=== PATIENT | male | born 1970 | race Caucasian/White ===

== ENCOUNTER 2017-02-02 16:40 | Inpatient (IN) ==
[2017-02-02] MEDS ORDERED: ZOFRAN IV PRN (18:50)
[2017-02-02] MEDS ORDERED: DILAUDID IV PRN (18:56)
[2017-02-02] MEDS: LR 1,000 ML IV SCH ×2 (19:13→20:14)
[2017-02-02 19:20] LABS: BASO% 0.2 % (0.0-0.8); EOS# 0.02 X1000 (0.0-0.7); EOS% 0.1 % (0.0-10.0); HEMATOCRIT 44.3 % (42.0-52.0); HEMOGLOBIN 15.9 g/dL (14.0-18.0); IMM GRAN# 0.12 X1000 (0.0-0.04); IMM GRAN% 0.6 % (0.0-0.5); LYMPH# 2.22 X1000 (1.2-3.4); LYMPH% 10.3 % (20.5-51.1); MANUAL DIFF NEEDED? NO; MCH 31.9 PG (27-31); MCHC 35.9 g/dL (33-37); MONO# 3.57 X1000 (0.11-0.59); MONO% 16.5 % (1.7-9.3); MPV 9.1 FL (7.4-10.4); NEUT% 72.3 % (42.2-75.2); PLT 377 X1000 (130-400); RBC 4.98 XMIL (4.7-6.1)
--- NOTE | 2017-02-02 19:24 | Diag Imaging Result Doc PS360 ---
EXAM: KUB ABDOMEN HISTORY: abdominal pain TECHNIQUE: One view COMMENT: There is a large amount of stool in ascending colon and gas throughout the transverse colon and to a lesser extent in the descending and sigmoid colon. There is at least one loop of gas-distended small bowel in the left midabdomen. There is an apparent stent, apparently between the stomach and a pseudocyst is seen on the CT of 06/16 2016. There are no previous studies available for comparison. IMPRESSION: Constipation. Possible ileus. Electronically signed by Angel Louis 02/02/2017 7:22 PM
[2017-02-02 19:26] LABS: INR 1.1; PROTIME 11.6 Seconds (9.2-11.7)
[2017-02-02 19:41] LABS: AGAP 17; ALBUMIN 3.8 g/dL (3.5-5.0); ALKALINE PHOSPHATASE 167 U/L (32-122); BUN 3 mg/dL (8-22); CHLORIDE 92 mmol/L (98-107); COSMO 265; GOT 10 U/L (10-34); GPT 9 U/L (10-44); POTASSIUM 3.1 mmol/L (3.5-5.1); SODIUM 133 mmol/L (136-145); TCO2 24 mmol/L (25-35); TOTAL PROTEIN 7.5 g/dL (6.3-8.3)
--- NOTE | 2017-02-02 20:07 | HISTORY AND PHYSICAL ---
PRIMARY CARE DOCTOR: None. REAL ESTATE INVESTOR: Shamar East MD PRESENTING COMPLAINT: Abdominal pain. HISTORY OF PRESENTING COMPLAINT: Mr. Thomson is a transfer from [facility]. Patient was admitted over there yesterday, apparently because of worsening abdominal pain for the past 3 days. According to Mr. Thomson, the pain has been getting progressively worse to the extent that he has been so severely hurting and that he cannot stay still in 1 single position. The pain is about 10/10 and has no relieving factor, movement or any food. Eating well even make it worse. Patient refers that he has not had any food for some time. Of note, Mr. Thomson has previous pancreatitis before apparently due to alcohol and stones, has had stents in the CBD before this was cleansed 07/23/[address] East. Apparently Mr. Thomson was in [facility], a CT scan of the abdomen and pelvic was done which shows a 5.7 septated complex cystic mass in the pancreatic head consistent with inflammatory pseudocyst and because there is no director market intelligence in that facility, the patient was transferred over here for medical care. PAST MEDICAL HISTORY: 1. Chronic pancreatitis. 2. Pseudocyst. 3. Diabetes mellitus. 4. Previous alcohol abuse. PAST SURGICAL HISTORY: 1. Multiple stents in the CBD. 2. Partial finger amputation on the right. ALLERGIES: None. SOCIAL HISTORY: The patient used to drink extensively for a very long time. According to him, he stopped drinking that heavily since last year after he was found to have a bout of pancreatitis; however, he still says he drinks about 3-4 beers every now and then. His last drink was some about 2 weeks ago and subsequently 2 days later he started having this abdominal pain which has been going on for the past 9 days. The patient also smokes about 2-1/2 packs daily and has been going on for the past 20 years. Lives alone. Not . No kids. Patient is on disability. Patient does have a remote history of street drug abuse. According to him, he has not used any recently. OBJECTIVE: Vital signs: Blood pressure is 132/77, pulse of 108, respirations 24, temperature 98.4 degrees. General: Mr. Thomson is a 46-year-old male. He is in bed in some painful distress. HEENT: Mucosa is slightly dry. Anicteric and acyanotic. Neck supple. Head is normocephalic and atraumatic. The patient has very poor dentition. Chest: Good air entry bilaterally. No crepitations. No rhonchi. Cardiovascular: Regular rate and rhythm. There are no murmurs no rubs, no gallops. Abdomen: Distended. It is tender all over, but there is not any rebound or apparent peritoneal irritation. GRID CASTER: Patient is alert, awake, oriented x4. There is no focal neurological deficit. Motor is 5/5. There is not any sensory deficit. Cranial nerves 2 through 12 have been grossly examined and are unremarkable. LABORATORY DATA: WBC is 21.6, hemoglobin is 15.9, platelet count of 377,000. Chemistry is still pending. IMAGING: A KUB that we just did shows a large amount of stool in ascending colon and gas throughout the transverse colon and to a lesser extent in the descending colon. There is at least 1 loop of gas-distended small bowel. There is apparent stent between the stomach and the pseudocyst. ASSESSMENT: 1. Acute on chronic recurrent pancreatitis. 2. Inflammatory pancreatic pseudocyst. 3. Severe constipation with ileus. 4. Alcohol abuse. 5. History of previous drug abuse. PLAN: 1. In general, I did call Dr. East and discussed the case with him. He is going to come and see the patient tomorrow. For now, he recommended to keep the patient nothing per oral, continue with adequate hydration and pain control. He recommended also to put the patient on antibiotics and get the pancreas under control and he will see him tomorrow and make a decision if he needs to revisit the stent. 2. We will start the patient on lactated Ringer's at 125 mL/hour. We will still be pending the chemistry to see if we need to make any changes. 3. Start the patient on Protonix. 4. We will start him on meropenem. 5. Give further recommendations as more results become available. I think some of his pain is actually related with the severe constipation as well, so we will be extremely cautious with the use of narcotics and give him some bowel prep to help with the constipation. cc: MD NUBIA Reich
[2017-02-02] MEDS: PROTONIX IV SCH (20:14)
[2017-02-02] MEDS: MERREM 500 MG in NS 50 ML IV SCH (20:14)
[2017-02-02] MEDS ORDERED: MAGNESIUM SULFATE 2 GM/S.W.I. 2 GM/50 ML IVPB IV ONE (20:28)
[2017-02-02] MEDS: DILAUDID IV PRN (22:29)
[2017-02-02] MEDS: BENTYL IM SCH (23:02)
[2017-02-02] MEDS: POTASSIUM CHLORIDE 20 MEQ/SWI 20 MEQ/100 ML IVPB IV SCH (23:56)
[2017-02-03] MEDS: POTASSIUM CHLORIDE 20 MEQ/SWI 20 MEQ/100 ML IVPB IV SCH (01:53)
[2017-02-03] MEDS: DILAUDID IV PRN ×4 (04:23→22:53)
[2017-02-03] MEDS: MERREM 500 MG in NS 50 ML IV SCH ×3 (05:37→21:35)
[2017-02-03] MEDS: BENTYL IM SCH (05:37)
[2017-02-03] MEDS: LR 1,000 ML IV SCH ×2 (05:39→14:07)
[2017-02-03 05:48] LABS: BASO% 0.2 % (0.0-0.8); HEMATOCRIT 42.2 % (42.0-52.0); HEMOGLOBIN 15.1 g/dL (14.0-18.0); IMM GRAN# 0.12 X1000 (0.0-0.04); IMM GRAN% 0.6 % (0.0-0.5); LYMPH# 1.76 X1000 (1.2-3.4); LYMPH% 8.1 % (20.5-51.1); MANUAL DIFF NEEDED? YES; MCH 32.1 PG (27-31); MCHC 35.8 g/dL (33-37); MCV 89.8 FL (81-99); MONO# 3.66 X1000 (0.11-0.59); MONO% 16.8 % (1.7-9.3); MPV 9.7 FL (7.4-10.4); NEUT% 74.3 % (42.2-75.2); PLT 315 X1000 (130-400)
[2017-02-03 06:05] LABS: BANDS 18 % (0-1); LYMPHS 12 % (21-51); MONO 10 % (1-9)
[2017-02-03 06:13] LABS: AGAP 22; ALBUMIN 3.3 g/dL (3.5-5.0); ALKALINE PHOSPHATASE 157 U/L (32-122); BUN 2 mg/dL (8-22); CALCIUM 8.5 mg/dL (8.8-10.2); CHLORIDE 92 mmol/L (98-107); COSMO 270; GOT 10 U/L (10-34); GPT 7 U/L (10-44); MAGNESIUM 2.1 mg/dL (1.5-2.7); POTASSIUM 3.7 mmol/L (3.5-5.1); SODIUM 133 mmol/L (136-145); TCO2 19 mmol/L (25-35); TOTAL BILIRUBIN 0.34 mg/dL (0.20-1.00); TOTAL PROTEIN 6.5 g/dL (6.3-8.3)
[2017-02-03] MEDS: NICODERM PATCH TD SCH (10:43)
--- NOTE | 2017-02-03 11:45 | Diag Imaging Result Doc PS360 ---
EXAM: KUB ABDOMEN HISTORY: evaluate for constipation or obstruction TECHNIQUE: Two views COMMENT: There is solid stool present in the right transverse colon. Some stool is also present distally in the sigmoid. No small bowel or gastric distention is present. IMPRESSION: Constipation. Electronically signed by Angel Louis 02/03/2017 11:42 AM
[2017-02-03] MEDS: HUMULIN R SUBQ SCH ×2 (11:57→17:50)
--- NOTE | 2017-02-03 13:52 | CONSULTATION ---
DATE OF CONSULTATION: 02/03/2017 REASONS FOR CONSULTATION: Abdominal pain, constipation, pancreatic pseudocyst. HISTORY OF PRESENT ILLNESS: Mr. Thomson is a 46-year-old male who has a known history of chronic pancreatitis, complicated with pancreatic pseudocyst, status post stenting and drainage into the stomach, history of alcoholism, history of heavy tobacco abuse, who was admitted to the [facility] on 02/01/2017 with worsening abdominal pain in the right lower quadrant, and generalized abdomen and constipation, worsening over the last 9 days. In [facility], he had imaging done, which showed evidence of complex cystic mass in the pancreatic head, consistent with inflammatory pseudocyst measuring 5.7 cm, and evidence of stents draining the pancreatic pseudocyst into the stomach. The patient had developed pancreatitis in the past because of the alcohol abuse, and history of stones. He had EGD with cleaning of his draining stents on 07/23/[address] East. He has been noncompliant with his medications. He continues to smoke heavily. His last alcohol drink was 2 weeks ago. He drinks about 3 to 4 beers at 1 time. He also has a history of chronic constipation, which has gotten worse in the last 2 weeks. He has not had a bowel movement in the last [address] scan showed evidence of stool throughout the right colon, suggesting impaction. The patient denies any vomiting since being in the hospital, although he has minimal oral intake for the last 1 week. PAST MEDICAL HISTORY: 1. Chronic pancreatitis. 2. History of alcoholism. 3. History of chronic tobacco abuse, heavy, smokes about 2 to 2-1/2 packs a day. 4. Pancreatic pseudocyst, status post drainage. 5. Diabetes mellitus type 1, insulin dependent, noncompliant, admitted at [facility] with positive ketones in the urine suggesting possibility of DKA and starvation ketoacidosis because of poor oral intake. 6. History of alcohol abuse, and has slowed down. The last alcohol use was 2 weeks ago. 7. History of excessive use of NSAIDs, like aspirin for abdominal pain. 8. Reflux disease. PAST SURGICAL HISTORY: 1. Pancreatic pseudocyst, status post drainage with stent placement communicating between the pseudocyst and the stomach. 2. Partial finger amputation on the right. ALLERGIES: None. SOCIAL HISTORY: He lives alone. He used to drink heavy until last year when he started to cut down. He still drinks about 3 to 4 beers every now and then. The last drink was almost 2 weeks ago. He smokes 2-1/2 packs a day for more than 20 years. He lives alone. He is on disability. He has remote history of street drug abuse, but he has not used any recently. MEDICATIONS: Medications in the hospital include: 1. Hydromorphone 1 mg IV every 6 hours as needed. 2. Sliding-scale insulin. 3. Lactated Ringer 120 mL/h. 4. Meropenem 500 mg IV every 8 hours. 5. NicoDerm 21 mg topical daily. 6. Zofran 4 mg IV every 4 hours as needed. 7. Protonix 40 mg IV every 24 hours. 8. MiraLAX 17 grams p.o. b.i.d. 9. Magnesium sulfate. 10. GoLYTELY, he is currently on a clear liquid diet. REVIEW OF SYSTEMS: Denies any current fevers, rigors or chills, chest pain, shortness of breath. Denies any genitourinary complaints. No history of chronic pain. History of chronic constipation. He denies any vomiting blood or passing blood in the stools. Denies any neurological complaints. He does have history of psychosis, being followed by a mental health facility, and is on medications. PHYSICAL EXAMINATION: Vital Signs: Temperature 97.4 degrees, pulse rate of 102 , respiratory rate 18, blood pressure 118/71, saturating 97% on room air. Body weight of 165 pounds, BMI 25.1 kg. General: Moderately built, moderately nourished, lying in bed in distress because of abdominal pain. HEENT: No pallor. No icterus. Pupils equal, react to light. Neck: Supple. Chest: Decreased breath sounds at the bases. Cardiac: S1, S2. Tachycardic. Abdomen : Discomfort in the periumbilical region, right lower quadrant. Bowel sounds are hypoactive. No rebound. No guarding. No distention noted. Extremities: No cyanosis, clubbing, or edema. Neurologic: Alert, awake, oriented. IMAGING AND LABORATORY DATA: Hemoglobin and hematocrit are 15.1 and 42.2, white count of 21.7, platelet count of 315, MCV of 89.8. INR of 1, PT of 11.6. Sodium 133, potassium 3.7, chloride 92, bicarb of 19, anion gap of 22, BUN of 2, creatinine 0.5, glucose of 241, calcium is 8.5. Magnesium 2.1. Total bilirubin is 0.34, AST 10, ALT 7, alkaline phosphatase is 157, total protein 6.5, albumin of 3.3. Lipase of 30; the highest lipase was noted to be 121 in [facility], which has normalized with hydration. CRP is 199.28. Abdominal x-ray done yesterday showed constipation, possible ileus, large amount of stool in the ascending colon, and gas throughout the transverse colon. IMPRESSION AND PLAN: 1. Severe constipation with stool seen in the right ascending colon on x-ray. No bowel movement for the last 9 days. 2. Abdominal pain in the periumbilical region and in the right lower quadrant. 3. History of acute on chronic pancreatitis complicated by pseudocyst, status post drainage. Mild elevated lipase of 121, which is normal after hydration. 4. Leukocytosis, unclear etiology, could be related to bowel ischemia versus pancreatitis versus stress response. 5. Heavy tobacco abuse. 6. History of alcoholism, last drink was 2 weeks ago. 7. Psychosis history. RECOMMENDATIONS: 1. Will check serum lactate level. 2. Will start him on soapsuds enema to help with the constipation. Will start him on GoLYTELY through the mouth. We will put in an NG tube if needed as the patient is unable to tolerate oral GoLYTELY. Will start him on PPIs twice daily. The patient was strongly instructed to quit the use of NSAIDs, like aspirin, as it can cause peptic ulcer disease. 3. The patient was also counseled to quit smoking completely. He is on NicoDerm patch here. The patient was also counseled to quit alcohol completely. We will schedule him for EGD and colonoscopy tomorrow with Dr. East. 4. Will keep him on IV fluids, IV pain control, IV antiemetics for now. 5. Will continue to watch him closely. Will obtain abdominal x-ray in the morning. The patient will have serial abdominal exams per the nursing staff. 6. Further recommendations to follow pending hospital course. cc: MD NUBIA Mendoza
--- NOTE | 2017-02-03 13:59 | CONSULTATION ---
DATE OF CONSULTATION: 02/03/2017 HISTORY OF PRESENT ILLNESS: This is a 46-year-old male with history of chronic pancreatitis and pseudocyst related to alcohol in the past. He has had a cyst gastrostomy endoscopic done at [facility] in the past for treatment of the body and tail pseudocyst. This has been at least 1-2 years ago. He has chronic pain. He states over the last 9 days he developed increasing pain requiring him to go to the [place] [facility] yesterday and he was transferred over. CT scan reportedly there showed a new multi-complex pancreatic head cyst. He has also had pancreatic duct cyst by Dr. East in the past. Dr. Morris says that he had an EGD and a colonoscopy done within the year that showed some constipation. He states he has been constipated the last couple days. They have given him an enema today. He had some nausea but no vomiting. No blood in his stools. PAST MEDICAL HISTORY: 1. Chronic pancreatitis. 2. Pancreatic pseudocyst. 3. Diabetes. 4. History of alcohol abuse. PAST SURGICAL HISTORY: 1. Pancreatic and bile duct stents and a partial amputation of his finger on the right. 2. Endoscopic cyst gastrostomy in [facility] approximately a year ago. SURGICAL HISTORY: Otherwise no abdominal operations. REVIEW OF SYSTEMS: Ten point negative except for what is mentioned in the HPI. SOCIAL HISTORY: Extensive drinking history. Quit when he was told he had pancreatitis. He said he continues to drink 3-4 beers every now and then. Drank 2 weeks ago and developed pain since. Smokes 2-1/2 packs a day for 20 years. On disability. HISTORY OF ILLICITS: None current. FAMILY HISTORY: Negative for cancer. PHYSICAL EXAMINATION: VITAL SIGNS: Temperature 98.2 degrees, pulse has been low 100, 112 currently. Blood pressure 149/81, oxygen saturation 100% on room air. General: He is alert, no acute distress. HEENT: There is no scleral icterus. Cardiovascular: Sinus tachycardia with no with normal rate and rhythm. Pulmonary: No increased work of breathing. Abdomen: Soft, mildly distended and nontender. No peritonitis. Complains of diffuse pain but he is lying comfortably and moving around in the bed without signs of peritonitis. Integument: Warm and dry without jaundice. There is no lower extremity edema. Musculoskeletal: It seems that his strength and muscle mass is normal throughout. I do not see any surgical scars on his abdomen and there are no varicosities of his abdominal wall or concern for cirrhosis. LABS: White count stable at 21, hematocrit 42, platelets are 315,000. INR is 1.10. Sodium is low 133, potassium 3.7, chloride 92, CO2 is 19, BUN is 2, creatinine 0.5, glucose 241, magnesium 2.1. Bilirubin 0.34, AST ALT 10 and 7. Alkaline phosphatase 157, lactate is 1.3. He had a CT scan from [facility] and I do not have the images available, but reports noted in Dr. Mccarthy's notes shows a complex pancreatic head, cystic lesion concerning for recurrence of his cyst. ASSESSMENT AND PLAN: A 46-year-old male with chronic pancreatitis pseudocyst that had been treated at [facility] with endoscopic cyst gastrostomy. He has chronic pain at baseline, and over the last 9 days apparently after drinking alcohol a couple weeks ago developed increased abdominal pain and constipation. His exam is benign. I suspect that he has developed another pseudocyst and that this is a result of his current symptoms. Dr. Morris was worried that he has a worsening metabolic acidosis with a rising anion gap, but his lactic acid is normal. I do not see that this is the etiology. Blood sugars are high today and I worry that he has potentially a more type 1 diabetic given his pancreatic insufficiency and he could be having impending ketoacidosis. I will defer management of this to the medicine service. He does have a leukocytosis on antibiotics. I would continue workup for this. He can check urinalysis and work on getting his images from [facility] to make sure that there is no infected pancreatic process going on. We continue to follow him. No plans for acute surgical intervention at this time. cc: Ulises Hicks MD
[2017-02-03] MEDS ORDERED: GOLYTELY PO ONE (14:00)
[2017-02-03] MEDS ORDERED: LANTUS SUBQ ONE (14:52)
[2017-02-03 15:06] LABS: ALLEN TEST YES; BE -3.9 mmoll (-3.0-3.0); BLOOD TYPE ARTERIAL; DRAW SITE R RADIAL; METHB 1.3 % (0.0-1.5); O2(CT) 19.9 mL/dL (15.0-23.0); PCO2(98.6) 32 mmHg (35-45); PO2(98.6) 67 mmHg (60-100); SAMPLE BLOOD; SAO2 96.5 % (95.0-100.0); THB 15.1 g/dL (11.5-17.4)
[2017-02-03 15:07] LABS: MODALITY ROOM AIR
--- NOTE | 2017-02-03 15:33 | PROGRESS NOTE ---
DATE: 02/03/2017 SUBJECTIVE: Today Mr. Thomson refers to be hurting so bad and none of the medication is actually helping. He has been given GoLYTELY to be drinking and he cannot even tolerate it because of the pain. OBJECTIVELY: Vitals: Blood pressure is 149/81, pulse of 112, respiration is 18 , temperature 98.2 degrees. General: Mr. Thomson is a 46-year-old male. He is in bed. He seems to be in painful distress. HEENT: Mucosa is pink and moist. Anicteric. Acyanotic. Patient has very poor dentition. Neck: Supple. Chest: Clear. Cardiovascular: Regular rate and rhythm. Abdomen: Soft. It is tender all over. No guarding, rebound. METHODS ANALYST: Patient is alert and oriented. LABORATORY DATA: WBC is 21.177, hemoglobin is 15.1, platelet count of 315,000, segmenters of 58, the bands are 18%. Sodium is 133, potassium is 3.7, chloride 99, bicarb is 19. Glucose is 241,. C-reactive protein is up to 199, significant for ongoing inflammation. ASSESSMENT: 1. Acute on chronic recurrent pancreatitis. 2. Inflammatory pancreatic pseudocyst. 3. Severe constipation with ileus. 4. Alcohol abuse. 5. Previous drug abuse. 6. Leukocytosis with bandemia suspicious for infectious etiology. We will do blood cultures and urine culture. 7. Patient also does have high anion gap metabolic acidosis. Lactate seems to be normal. Glucose is slightly high. Not quite sure if this is diabetic ketoacidosis or is just starvation ketosis. We will repeat the BMP stat. If this is still abnormal we are going to go ahead and treat the patient for diabetic ketoacidosis since he has underlying diabetes secondary to his pancreas disorders. cc: Jabari Mccarthy MD [facility]
[2017-02-03 16:06] LABS: AGAP 21; BUN 3 mg/dL (8-22); CALCIUM 8.3 mg/dL (8.8-10.2); CHLORIDE 91 mmol/L (98-107); COSMO 263; POTASSIUM 3.6 mmol/L (3.5-5.1); SODIUM 129 mmol/L (136-145); TCO2 17 mmol/L (25-35)
[2017-02-03 16:24] LABS: ACETONE SERUM SMALL (NEGATIVE)
[2017-02-03] MEDS ORDERED: HUMULIN R IV ONE (17:49)
[2017-02-03] MEDS ORDERED: D50W SYRINGE IV PRN (17:49)
[2017-02-03] MEDS ORDERED: POTASSIUM CHLORIDE 20 MEQ in NS 100 ML IV PRN (17:49)
[2017-02-03] MEDS ORDERED: HUMULIN R 100 UNIT in NS 99 ML IV SCH (17:49)
[2017-02-03] MEDS ORDERED: SODIUM PHOSPHATE 30 MMOL in D5W 250 ML IV PRN (17:49)
[2017-02-03] MEDS ORDERED: MAGNESIUM SULFATE 2 GM/S.W.I. 2 GM/50 ML IVPB IV PRN (17:49)
[2017-02-03] MEDS: NS 1,000 ML IV SCH ×4 (17:55→21:36)
[2017-02-03 20:07] LABS: MAGNESIUM 1.9 mg/dL (1.5-2.7)
[2017-02-03 20:11] LABS: AGAP 23; BUN 3 mg/dL (8-22); CALCIUM 8.4 mg/dL (8.8-10.2); CHLORIDE 93 mmol/L (98-107); COSMO 272; POTASSIUM 3.1 mmol/L (3.5-5.1); SODIUM 135 mmol/L (136-145); TCO2 19 mmol/L (25-35)
[2017-02-03] MEDS: SODIUM CHLORIDE 0.9% INJ SCH (20:36)
[2017-02-03] MEDS: PROTONIX IV SCH (20:36)
[2017-02-03] MEDS: MIRALAX PO SCH (22:13)
[2017-02-03] MEDS: 1/2 NS 1,000 ML IV SCH (22:13)
[2017-02-03] MEDS: POTASSIUM CHLORIDE 40 MEQ in NS 250 ML IV PRN (22:19)
[2017-02-03] MEDS: D5 1/2 NS 1,000 ML IV PRN (22:19)
[2017-02-04 01:22] LABS: AGAP 17; BUN 1 mg/dL (8-22); CHLORIDE 93 mmol/L (98-107); COSMO 268; POTASSIUM 3.5 mmol/L (3.5-5.1); SODIUM 134 mmol/L (136-145); TCO2 24 mmol/L (25-35)
[2017-02-04 01:38] LABS: MAGNESIUM 1.7 mg/dL (1.5-2.7)
[2017-02-04] MEDS: NS 1,000 ML IV SCH ×2 (03:14→09:56)
[2017-02-04 04:34] LABS: MAGNESIUM 1.6 mg/dL (1.5-2.7)
[2017-02-04] MEDS: MERREM 500 MG in NS 50 ML IV SCH ×3 (04:57→20:02)
[2017-02-04] MEDS: DILAUDID IV PRN ×2 (04:57→10:59)
[2017-02-04 04:59] LABS: AGAP 19; BUN 1 mg/dL (8-22); CHLORIDE 91 mmol/L (98-107); COSMO 266; POTASSIUM 3.3 mmol/L (3.5-5.1); SODIUM 133 mmol/L (136-145); TCO2 23 mmol/L (25-35)
[2017-02-04] MEDS: D5 1/2 NS 1,000 ML IV PRN (04:59)
[2017-02-04] MEDS: 1/2 NS 1,000 ML IV SCH (05:00)
[2017-02-04] MEDS: POTASSIUM CHLORIDE 40 MEQ in NS 250 ML IV PRN (05:17)
[2017-02-04 08:25] LABS: MAGNESIUM 2.2 mg/dL (1.5-2.7)
[2017-02-04 08:31] LABS: AGAP 12; BUN 1 mg/dL (8-22); CALCIUM 7.9 mg/dL (8.8-10.2); CHLORIDE 92 mmol/L (98-107); COSMO 262; POTASSIUM 3.4 mmol/L (3.5-5.1); SODIUM 132 mmol/L (136-145); TCO2 28 mmol/L (25-35)
[2017-02-04] MEDS ORDERED: LANTUS SUBQ SCH ×2 (09:00→09:43)
[2017-02-04] MEDS: NICODERM PATCH TD SCH (09:10)
[2017-02-04] MEDS ORDERED: INSULIN PEN NEEDLES ONE (09:52)
[2017-02-04] MEDS: MIRALAX PO SCH ×2 (09:56→20:02)
[2017-02-04] MEDS: D5 NS 1,000 ML IV SCH ×2 (10:00→18:39)
--- NOTE | 2017-02-04 10:16 | PROGRESS NOTE ---
DATE: 02/04/2017 SUBJECTIVE: Today Mr. Thomson refers to be doing slightly better, but continues to be hurting. He did have multiple bowel movements with the GoLYTELY. The patient is pending an EGD with colonoscopy today. OBJECTIVE: Vital Signs: Blood pressure is 126/82, pulse of 94, respirations 16 , temperature is 100.6 degrees. Chest: Good air entry bilaterally. No crepitations, no rhonchi. Cardiovascular: Regular rate and rhythm. Abdomen: Soft. Mildly tender all over and distended. Bowel sounds are hypoactive. Extremities: No pedal edema. Central Nervous System: The patient is alert and oriented x4. There is no focal neurological deficit. LABORATORY DATA: No CBC today. Chemistry: Sodium is 132, potassium is 3.4, chloride is 92, bicarbonate is 28, anion gap is 12, creatinine 0.4, glucose is 136. ASSESSMENT AND PLAN: 1. High anion gap metabolic acidosis, resolved. 2. Suspected diabetic ketoacidosis, improved. 3. Acute on chronic recurrent pancreatitis. 4. Inflammatory pancreatic pseudocyst. 5. Severe constipation with ileus, improved. 6. History of alcohol abuse. 7. History of previous drug abuse. 8. Leukocytosis with bandemia, suspicious for infectious etiology. The patient is currently on antibiotics. He did have a spike of a slight fever this morning. Blood cultures so far have no grown anything. Urine culture is negative. In general, Mr. Thomson is relatively stable. Diabetic ketoacidosis is resolved. The patient continues to be nothing by mouth, so we will continue fluid that contains dextrose. We will give him a dose of glargine 10 units to maintain to meet his baseline necessities and use sliding scale for additional insulin needs. The patient will be going for esophagogastroduodenoscopy and colonoscopy. After that, we will be able to start feeding him. cc: MD NUBIA Reich
[2017-02-04] MEDS ORDERED: FENTANYL ONE (13:10)
[2017-02-04] MEDS ORDERED: DIPRIVAN 1% ONE (13:10)
--- NOTE | 2017-02-04 13:26 | OPERATIVE NOTE ---
PROCEDURE DATE: 02/04/2017 PROCEDURE: 1. ERCP. 2. Sphincterotomy. 3. Stent placement. PREOPERATIVE DIAGNOSIS: Abdominal pain. POSTOPERATIVE DIAGNOSE: Pancreatic cyst, drained and stented. DESCRIPTION OF PROCEDURE: After informed consent and adequate intravenous sedation, the EGD scope was introduced. Patient has a pancreatic pseudocyst bulging into the duodenum. At this point, the scopes were changed. The side-viewing ERCP scope was used and a needle-knife sphincterotome was used. It was cut and patient had drainage of close to 500 mL of purulent material which was collected, some of which for culture. At this point, a 10-Greenlandic, 5 cm stent was deployed. The scope was withdrawn. The patient tolerated the procedure and transported back to the recovery room in satisfactory condition. cc: Shamar East MD
[2017-02-04] MEDS ORDERED: XYLOCAINE-MPF 2% ONE (14:16)
[2017-02-04] MEDS ORDERED: NS 1,000 ML ONE (14:17)
--- NOTE | 2017-02-04 15:17 | PROGRESS NOTE ---
DATE: 02/04/2017 SUBJECTIVE: He was admitted to the ICU for management of DKA last night. Feels better. Vital signs look better. OBJECTIVE: Vital Signs: Low-grade temp 97.6. This morning pulse is better now in the 90s from the 1-teens to 1-twenties yesterday. Blood pressure 126/82, oxygen saturation 96% on room air. Abdomen: Mildly tender in the epigastrium, but he is otherwise in no acute distress. No jaundice. LABS: Creatinine 0.4, glucose 136, CO2 is up to 28 with an anion gap of 12. ASSESSMENT AND PLAN: This is a 46-year-old male with chronic pancreatitis and pseudocyst. He has had gastrostomies to pancreatic body and tail collection. He appears to have a new loculated head collection. I do not see any signs of infection here. He has been treated with for diabetic ketoacidosis and I think this is improving. However, I suspect that if he requires any further management, it might be best for him to go to [place] where he could have endoscopy, but will talk to Dr. East about this. He does have plans for scope procedure today; may be able to will perform some kind of pancreatic stenting to help decompress the cyst. Will continue to follow along. No plans for surgical intervention at this time. cc: Ulises Hicks MD
[2017-02-04] MEDS: HUMULIN R SUBQ SCH ×2 (15:57→20:03)
[2017-02-04] MEDS: SODIUM CHLORIDE 0.9% INJ SCH (19:16)
[2017-02-04] MEDS: PROTONIX IV SCH (19:16)
[2017-02-05] MEDS: D5 NS 1,000 ML IV SCH (02:57)
[2017-02-05] MEDS: MERREM 500 MG in NS 50 ML IV SCH ×3 (05:18→22:45)
[2017-02-05 06:07] LABS: MANUAL DIFF NEEDED? NO
[2017-02-05] MEDS: HUMULIN R SUBQ SCH ×4 (06:13→22:51)
[2017-02-05 06:39] LABS: BASO% 0.2 % (0.0-0.8); EOS# 0.01 X1000 (0.0-0.7); EOS% 0.1 % (0.0-10.0); HEMATOCRIT 39.4 % (42.0-52.0); HEMOGLOBIN 14.4 g/dL (14.0-18.0); IMM GRAN# 0.11 X1000 (0.0-0.04); IMM GRAN% 0.8 % (0.0-0.5); LYMPH# 2.04 X1000 (1.2-3.4); LYMPH% 14.6 % (20.5-51.1); MCH 32.4 PG (27-31); MCHC 36.5 g/dL (33-37); MCV 88.7 FL (81-99); MONO% 11.4 % (1.7-9.3); MPV 10.1 FL (7.4-10.4); NEUT% 72.9 % (42.2-75.2); PLT 313 X1000 (130-400); RBC 4.44 XMIL (4.7-6.1)
[2017-02-05 06:41] LABS: AGAP 14; ALBUMIN 2.3 g/dL (3.5-5.0); ALKALINE PHOSPHATASE 165 U/L (32-122); BUN 1 mg/dL (8-22); CALCIUM 8.1 mg/dL (8.8-10.2); CHLORIDE 94 mmol/L (98-107); COSMO 274; GOT 13 U/L (10-34); GPT 8 U/L (10-44); MAGNESIUM 1.9 mg/dL (1.5-2.7); POTASSIUM 2.9 mmol/L (3.5-5.1); SODIUM 135 mmol/L (136-145); TCO2 27 mmol/L (25-35); TOTAL BILIRUBIN 0.48 mg/dL (0.20-1.00); TOTAL PROTEIN 5.4 g/dL (6.3-8.3)
[2017-02-05 07:43] LABS: HEMOGLOBIN A1C 10.1 % (4.8-6.0)
[2017-02-05] MEDS: NICODERM PATCH TD SCH (08:43)
[2017-02-05] MEDS: LANTUS SUBQ SCH (08:43)
[2017-02-05] MEDS: MIRALAX PO SCH ×2 (08:44→22:46)
[2017-02-05] MEDS ORDERED: KLOR-CON PO ONE (09:16)
--- NOTE | 2017-02-05 12:47 | PROGRESS NOTE ---
DATE: 02/05/2017 SUBJECTIVE: The patient says he feels much better. No significant abdominal pain today. No nausea or vomiting. He is eating a regular diet. OBJECTIVE: Vital Signs: He is afebrile. Vital signs are stable. General: He is alert and oriented times 4 and in no acute distress. Nontoxic appearing. GI: Soft, nontender, and nondistended. LABORATORY: White blood cell count is 14,000. Hemoglobin is 14.4. ASSESSMENT AND PLAN: A 46-year-old male status post endoscopic drainage of pancreatic pseudocyst which apparently was infected. He is improving. He is going to the floor today. We will continue observation. cc: Mahesh Cruz MD
--- NOTE | 2017-02-05 14:09 | PROGRESS NOTE ---
DATE: 02/05/2017 SUBJECTIVE: Today Mr. Thomson refers to be doing a whole lot better. According to him, the abdominal pain has completely resolved after the procedure and he is even tolerating a regular diet. OBJECTIVE: Vitals: Blood pressure is 120/78, pulse of 80, respiration is 20, temperature is 98.2 degrees. Patient is saturating 98% on room air. General: Mr. Thomson is a 46-year-old male. He is in bed, not seemingly in distress. HEENT: Mucosa is pink and moist. Anicteric. Acyanotic. Neck: Supple. Chest: Clear. Cardiovascular: Regular rate and rhythm. Abdomen: Soft, slightly distended but nontender. Bowel sounds are present. [employer] MECH[employer]IC: Patient is alert and oriented x4. No focal neurological deficit. LABORATORY DATA: WBC is down to 13.99, hemoglobin is 14.4, platelet count of 313,000. Chemistry is reviewed. Sodium is 135, potassium is 2.9, chloride is 95, bicarb is 27, glucose is 239. The A1c is 10.1. ASSESSMENT: 1. Infected pancreatic pseudocyst status post endoscopic drainage. So far the culture is growing gram-negative rods. Patient is currently on imipenem, seems to be doing a whole lot better. White count is also coming down. We are going to continue with the current antibiotics until we have ID and sensitivity to this and see if we can switch it to p.o. 2. Diabetic ketoacidosis. Resolved. 3. Acute on chronic pancreatitis. 4. Constipation with ileus. Patient is now having bowel movements. 5. History of alcohol and drug abuse in the past. 6. Sepsis on presentation, likely due to underlying infected pancreatic pseudocyst. So far, blood cultures have been no growth. Urine is no growth. We are still pending the gram negative navneet ID and sensitivity from the pancreatic pseudocyst fluid. So I think in general Mr. Thomson is doing a whole lot better, tolerating his diet. We are going to move him from the ICU to regular floor. We will replace his potassium. We are going to repeat his labs for tomorrow. In terms of the glycemic control, we have increased his insulin glargine to 20. We are going to continue with the sliding scale and we will discontinue the IV fluids. cc: Jabari Mccarthy MD
[2017-02-05] MEDS: PROTONIX IV SCH (22:46)
[2017-02-06] MEDS: MERREM 500 MG in NS 50 ML IV SCH (04:45)
[2017-02-06 05:46] LABS: MANUAL DIFF NEEDED? NO
[2017-02-06 05:55] LABS: BASO% 0.5 % (0.0-0.8); EOS% 0.9 % (0.0-10.0); HEMATOCRIT 39.6 % (42.0-52.0); HEMOGLOBIN 14.3 g/dL (14.0-18.0); IMM GRAN# 0.09 X1000 (0.0-0.04); IMM GRAN% 0.8 % (0.0-0.5); LYMPH% 23.8 % (20.5-51.1); MCH 32.2 PG (27-31); MCHC 36.1 g/dL (33-37); MCV 89.2 FL (81-99); MONO# 1.27 X1000 (0.11-0.59); MONO% 11.6 % (1.7-9.3); MPV 9.9 FL (7.4-10.4); NEUT% 62.4 % (42.2-75.2); PLT 366 X1000 (130-400); RBC 4.44 XMIL (4.7-6.1)
[2017-02-06] MEDS: HUMULIN R SUBQ SCH ×4 (06:28→21:45)
[2017-02-06] MEDS ORDERED: INSULIN PEN NEEDLES ONE (06:29)
[2017-02-06 06:40] LABS: AGAP 12; ALBUMIN 2.7 g/dL (3.5-5.0); ALKALINE PHOSPHATASE 131 U/L (32-122); BUN 4 mg/dL (8-22); CALCIUM 8.2 mg/dL (8.8-10.2); CHLORIDE 96 mmol/L (98-107); COSMO 272; GOT 13 U/L (10-34); GPT 7 U/L (10-44); POTASSIUM 2.8 mmol/L (3.5-5.1); SODIUM 137 mmol/L (136-145); TCO2 29 mmol/L (25-35); TOTAL BILIRUBIN 0.41 mg/dL (0.20-1.00); TOTAL PROTEIN 5.4 g/dL (6.3-8.3)
[2017-02-06] MEDS: NICODERM PATCH TD SCH (10:12)
[2017-02-06] MEDS: MIRALAX PO SCH ×2 (10:13→21:46)
[2017-02-06] MEDS: LANTUS SUBQ SCH (10:14)
[2017-02-06] MEDS ORDERED: KLOR-CON PO ONE (12:57)
--- NOTE | 2017-02-06 13:21 | PROGRESS NOTE ---
DATE: 02/06/2017 SUBJECTIVE: The patient says he feels good. He denies abdominal pain, nausea or vomiting. He is eating. OBJECTIVE: He is afebrile. Vital signs are stable. General: He is alert and oriented x4, in no acute distress. Cardiovascular: Regular rate and rhythm. Gastrointestinal: Soft, and nontender, nondistended. LABORATORY DATA: White blood cell count 10.9. ASSESSMENT AND PLAN: A 46-year-old male status post endoscopic drainage of infected pancreatic pseudocyst. He continues to make improvement. No further surgical plans at this time. Discharge per primary team. cc: Mahesh Cruz MD
[2017-02-06] MEDS: LEVAQUIN PO SCH (14:45)
[2017-02-06] MEDS: DIFLUCAN PO SCH (14:45)
--- NOTE | 2017-02-06 14:53 | PROGRESS NOTE ---
DATE: 02/06/2017 SUBJECTIVE: Mr. Thomson feels much better. He is eating a regular diet, he has markedly diminished pain and breathing comfortably. No nausea. OBJECTIVE: Vital signs: Temperature 98.9 degrees, pulse 79, respirations 18, blood pressure 114/68. Pupils are equal, round. Lungs: Are clear in all lung palacios. Cardiovascular: Regular rhythm and rate without murmur or S3. Abdomen: Soft. Skin: Is warm and dry. Extremities: No pedal edema. Urine output 1400 mL. LAB: White count 10,930, hematocrit 39, platelet count 366,000. Sodium 137, potassium 2.8, chloride 96, bicarb 29, BUN 12, creatinine 0.4, blood sugar 211, 128, 124. ASSESSMENT AND PLAN: 1. Infected pancreatic pseudocyst status post endoscopic drainage. So far cultures growing gram- negative rods. Patient currently on imipenem, seemed to be doing a whole lot better. White count is coming down. We are going to continue current antibiotics until we have ID and sensitivity see if we can switch to p.o. 2. Diabetic ketoacidosis resolved. 3. Acute on chronic pancreatitis. 4. Constipation, ileus and now having bowel movements. 5. History of alcohol, drug abuse in the past. 6. Sepsis on presentation likely due to underlying infected pancreatic pseudocyst. So far blood cultures have no growth. Urine no growth. Still pending gram negative navneet, ID and sensitivity from pancreatic pseudocyst this fluid. He is doing a lot better. He is on a regular diet. Will supplement some potassium IV, will check his electrolytes and magnesium and liver functions again in the morning. Will recheck a C-reactive protein, it was 72. Blood sugars appear to be well controlled. cc: Srini Krause MD
--- NOTE | 2017-02-06 17:42 | CONSULTATION ---
DATE OF CONSULTATION: 02/06/2017 CONCLUSION: The patient is status post sphincterotomy and stent placement for pancreatic abscess which is due to an infected pancreatic pseudocyst. Culture from the abscess is growing Raoultella planticola. This is a bacterium that used to be called Klebsiella planticola but the genus has been changed. In addition, on Gram stain a rare yeast was seen but thus far the fungal culture is negative. RECOMMENDATIONS: I have placed the patient on a combination of Levaquin and fluconazole both given by mouth in a dose of 500 mg p.o. daily for Levaquin and fluconazole 200 mg p.o. daily. I wrote a prescription for both medications. DISCUSSION: The patient was admitted to the hospital with severe abdominal pain and obstipation for 10 days. Since undergoing the procedure as mentioned above, the patient's pain has cleared and he has started having bowel movements also. Culture from the cyst is as mentioned above. The patient's other lab studies show a CBC with a white count of 10,930, hemoglobin 14.3 and platelet count 366,000. Creatinine 0.4. GFR is greater than 60. Liver function studies are normal except for an alkaline phosphatase of 131. Blood cultures and urine cultures are negative. On CT scan and pancreatic abscess which turned out to be an infected pseudocyst was seen. PAST MEDICAL HISTORY/REVIEW OF SYSTEMS: Eyes and ears: Patient is deaf in his left ear and he needs glasses to wear. He has had ocular surgery for cataracts. Neck: No stiffness. Respiratory: No cough or shortness of breath. Cardiovascular: No chest pain or palpitations. GI: Please see above. Genitourinary: No dysuria or flank pain. Endocrine: The patient has diabetes but not thyroid disease. Bones, joints, muscles: The patient currently is not having any joint pain or myalgias. He had does have a history of gout. Integument: No rash. The remainder of the patient's review of systems was completed and was negative. PREVIOUS HOSPITALIZATIONS AND OPERATIONS: The patient has had a stent placed last year in the common bile duct. The patient has had cataract surgery. He had a fracture of his leg which required surgery. 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 MEDICAL DISEASES: Positive for diabetes mellitus, hypertension, myocardial infarction, brain concussion, pancreatitis, infected pancreatitis pseudocyst, gout and schizophrenia, gout. INFECTIOUS DISEASE HISTORY: Negative for pneumonia and UTI. FAMILY HISTORY: Positive for diabetes mellitus, hypertension, myocardial infarction, stroke, and cancer. SOCIAL HISTORY[place] He smoke cigarettes, drinks alcoholic beverages. He denies drug abuse for the past year. He has no known drug allergies. 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 HOME MEDICATIONS: Consist of acetaminophen, Phenyltol, Zyprexa, gabapentin, albuterol inhaler, lisinopril, oxycodone, Zofran, Crestor and Aldactone. PHYSICAL EXAMINATION: Vital Signs: Temperature is 98.9 degrees, pulse 79, respirations 18, blood pressure 114/68. General: This is a somewhat ill-appearing, middle-aged male. He is in no acute distress. Head, eyes, ears, nose, and throat: He can hear my spoken words and see near objects. No drainage noted from the nose or ears. Patient is missing many of his teeth and his overall dental hygiene was poor. Neck: No meningismus. Thorax: There was increased AP diameter of the chest. Abdomen: Soft and nontender. Neurologic: Patient is alert. He can move his extremities. There is no tremor. His sensation is intact to touch. His memory, as regarding his medical history was slightly diminished. Integument: No rash noted. Thank you for the consult. cc: Corby Allen MD MTDD
[2017-02-06] MEDS: PROTONIX IV SCH (21:46)
[2017-02-07 07:35] LABS: MANUAL DIFF NEEDED? NO
[2017-02-07 07:49] VITALS: BP 129/85
[2017-02-07 07:51] LABS: BASO% 0.8 % (0.0-0.8); EOS# 0.16 X1000 (0.0-0.7); EOS% 1.6 % (0.0-10.0); HEMATOCRIT 41.7 % (42.0-52.0); HEMOGLOBIN 14.9 g/dL (14.0-18.0); IMM GRAN# 0.14 X1000 (0.0-0.04); IMM GRAN% 1.4 % (0.0-0.5); LYMPH# 2.35 X1000 (1.2-3.4); MCH 32.3 PG (27-31); MCHC 35.7 g/dL (33-37); MCV 90.5 FL (81-99); MONO# 1.11 X1000 (0.11-0.59); MONO% 10.9 % (1.7-9.3); MPV 10.1 FL (7.4-10.4); NEUT% 62.3 % (42.2-75.2); PLT 406 X1000 (130-400); RBC 4.61 XMIL (4.7-6.1)
[2017-02-07 08:10] LABS: AGAP 14; ALBUMIN 2.8 g/dL (3.5-5.0); ALKALINE PHOSPHATASE 138 U/L (32-122); AMYLASE 16 U/L (20-200); BUN 6 mg/dL (8-22); CALCIUM 8.5 mg/dL (8.8-10.2); CHLORIDE 97 mmol/L (98-107); COSMO 282; GOT 16 U/L (10-34); GPT 8 U/L (10-44); MAGNESIUM 1.8 mg/dL (1.5-2.7); POTASSIUM 3.2 mmol/L (3.5-5.1); SODIUM 141 mmol/L (136-145); TCO2 30 mmol/L (25-35); TOTAL BILIRUBIN 0.39 mg/dL (0.20-1.00); TOTAL PROTEIN 5.7 g/dL (6.3-8.3)
[2017-02-07] MEDS: DIFLUCAN PO SCH (09:20)
[2017-02-07] MEDS: LEVAQUIN PO SCH (09:20)
[2017-02-07] MEDS: NICODERM PATCH TD SCH (09:20)
[2017-02-07] MEDS: LANTUS SUBQ SCH (09:21)
[2017-02-07] MEDS: MIRALAX PO SCH (09:21)
--- NOTE | 2017-02-07 09:26 | PROGRESS NOTE ---
DATE: 02/07/2017 PRESENT ILLNESS: The patient is status post drainage of a pancreatic abscess due to an infected pseudocyst. He is not having any pain. MEDICATIONS: The patient is on a combination of p.o. Levaquin and p.o. fluconazole. PHYSICAL EXAMINATION: Vital Signs: Temperature is 97.8 degrees, pulse 84, respirations 20, blood pressure 129/85. Generally: This is a healthy-appearing, middle-aged male. He is in no acute distress. Lungs: Clear to auscultation. Cardiovascular: Regular heart rate. Abdomen: Soft and nontender. Neurologic: Patient is alert. He can move his extremities. LAB AND X-RAY: There is no new x-ray. The lab for today shows a CBC with a white count of 10,200, hemoglobin 14.9, and platelet count of 406,000. Creatinine 0.5. GFR is greater than 60. ASSESSMENT AND PLAN: The patient has a pancreatic abscess. The plan is to send him home on Levaquin and fluconazole for 3 weeks. I have written for the prescription. I plan to see the patient back at that time. I will repeat his CAT scan. If his abscess is gone, we can stop his antibiotics. If the abscess is getting smaller, then probably I will continue with both the Levaquin and fluconazole. COMORBIDITIES: Include diabetes mellitus and a prior history of pancreatitis. cc: Corby Allen MD
--- NOTE | 2017-02-07 13:23 | PROGRESS NOTE ---
DATE: 02/07/2017 PRIMARY PHYSICIAN: Dr. Srini Krause, in the hospital. SUBJECTIVE: The patient is resting in bed. He had an ERCP with drainage of the pancreatic cyst which was infected. His culture report is showing Raoultella planticola and this bacteria is sensitive to Levaquin. Dr. Corby Allen has seen the patient and he has recommended 3 weeks of Levaquin and fluconazole. The patient denies any current fevers, rigors, chills , chest pain. He denies any nausea, vomiting. He denies any blood in the stools. He is moving his bowels. Last bowel movement was this morning. OBJECTIVE: Vital signs: Temperature 97.8, pulse rate of 84, respiratory rate 20, blood pressure 129/85, saturating 98% on room air. General Appearance: Thinly built, lying in bed, in no acute distress. HEENT: No pallor. No icterus. Neck: Supple. Abdomen: Mild discomfort in the epigastric region. No rebound or guarding. Bowel sounds noted. Extremities: No cyanosis, clubbing, or edema. Neurologic: He is alert, awake, oriented. LABS: His hemoglobin and hematocrit are 14.9 and 41.7, white count 10.2, platelet count of 406,000. INR of 1.1. Sodium 140, potassium 3.2, chloride 97, bicarb 39, anion gap of 14, BUN of 6, creatinine 0.5, glucose of 149, calcium is 8.5. Total bilirubin is 0.39, AST 16, ALT 8, alkaline phosphatase 138, total protein 5.7, bilirubin 2.8, amylase 16, magnesium 1.8, calcium is 8.5. Blood cultures negative x2. Urine culture, no growth. Gram stain and culture from the pancreatic pseudocyst is growing Raoultella planticola. IMPRESSION AND PLAN: 1. Pancreatic abscess status post ERCP drainage and culture growing gram- negative rods. Dr. Corby Allen has seen the patient. The patient will continue on Levaquin and fluconazole for 3 weeks. 2. The patient will need to follow up with Dr. East in 3 weeks for further management. 3. Patient will follow with Dr. Corby Allen for management of infected pancreatic cyst. 4. The patient was counseled to quit smoking and avoid alcohol completely. 5. Constipation which is now resolved. Continue MiraLAX 17 g p.o. b.i.d. 6. GI prophylaxis with PPIs. 7. Diabetes mellitus per the primary care team. The patient was instructed to see a family care doctor as an outpatient. 8. The above findings were discussed with the patient and all questions answered. cc: MD Corby Mendoza MD Allen J. Schmidt, MD R. Tyler Harney, MD MTDD
[2017-02-07] MEDS ORDERED: DIFLUCAN PO SCH (15:00)
--- NOTE | 2017-02-07 19:32 | PROGRESS NOTE ---
DATE: 02/07/2017 SUBJECTIVE: Feels well. No pain. He is eating, having normal bowel function. OBJECTIVE: General: He is in no acute distress. Vitals: Temperature is 97.8 degrees, pulse 84, blood pressure 129/85, oxygen saturation 99% on room air. Eyes: There is no scleral icterus. Abdomen: Is soft, nontender, nondistended. LABORATORY: White count is down to 10, hematocrit 41. Bilirubin 0.39, AST ALT 16 and 8, alkaline phosphatase 138. ASSESSMENT/PLAN: A 46-year-old male with recurrent pancreatic pseudocyst. Dr. East has drained the cyst transduodenally and he is doing well. Symptoms have resolved. No episodes of diabetic ketoacidosis since his intensive care unit admission. I think he is doing very well. No plans for surgical intervention. We will continue to defer further care to Dr. East and Dr. Morris. cc: Ulises Hicks MD
--- NOTE | 2017-02-07 22:41 | DISCHARGE SUMMARY ---
ADMISSION DATE: 02/02/2017 DISCHARGE DATE: 02/07/2017 HOSPITAL COURSE: He came in with abdominal pain. His doctor is Dr. Shamar East. He was transferred from [facility] and was admitted there yesterday with apparently worsening abdominal pain over the last 3 days. He has progressively gotten worse. A CT of the abdomen and pelvis showed a 5.7 septated complex cystic mass in the pancreatic head consistent with inflammatory pseudocyst. Because there is no prep room supervisor in the facility he was sent over here. He had previous pancreatitis due to alcohol and stones, and has had stents, common bile duct before. This was 07/23/2016 so he was admitted, kept on NPO and given some pain control, lactated Ringer's at 125 mL an hour and started empirically on meropenem IV. Dr. East saw him on 02/04/2017 and did an ERCP, sphincterotomy, stent placement, pancreatic cyst was drained and stented, chronic pancreatitis and pancreatic pseudocyst. He has been treated at [place] with endoscopic gastrostomy and had chronic pain at baseline over the last 9 days. After drinking alcohol he developed increased abdominal pain and constipation. He showed steady improvement. His lactate acid level was normal and able to advance his diet to a regular diet. His cultures interestingly grew back two different organisms, yeast and also Klebsiella type organism, and so we will keep him on antibiotics. Keep him on Levaquin and fluconazole. His cultures show Raoultella planticola which is a gram-negative bacteria similar to Klebsiella. + Yeast did not grow out but was seen in the fluid. We will discharge him home. Continue him on Levaquin and Diflucan. He will follow up with his primary care. We will continue his previous home medications of gabapentin 300 mg b.i.d., Prinivil 2.5 mg daily, Zyprexa 10 mg at bedtime, oxycodone 5 mg q.12 hours, Crestor 10 mg at bedtime, Aldactone 25 mg a day. cc: Srini Krause MD
== END 2017-02-07 11:33 | disposition home or self-care (01) ==
LOC: DIRADM 16:40 → SUATTDRO 16:40 → 4N 17:37 → ICU 02-03 18:39 → 4N 02-05 12:17
PROVIDERS: ATTEND Emergency Medicine
PROC: EN.ERCP (2017-02-04 12:13)

== ENCOUNTER 2019-01-27 14:21 | Inpatient (IN) ==
[2019-01-27] MEDS ORDERED: MORPHINE IV ONE (14:39)
[2019-01-27] MEDS ORDERED: ZOFRAN IV ONE (14:39)
[2019-01-27] MEDS ORDERED: NS 1,000 ML IV ONE ×2 (14:39→16:17)
--- NOTE | 2019-01-27 14:48 | Diag Imaging Result Doc PS360 ---
EXAM: CHEST-1 VIEW HISTORY: POSSIBLE SEPSIS TECHNIQUE: Chest single view COMPARISON: 08/18/2017 FINDINGS: The lungs are well expanded. The heart is not enlarged. The vessels are not distended. There are no infiltrates. No effusion identified. IMPRESSION: No pneumonia. Electronically signed by Emery Lazcano 01/27/2019 2:45 PM
--- NOTE | 2019-01-27 14:58 | PROVIDER DOCUMENTATION ---
HPI-Abdominal Pain/GI Problem - General Chief Complaint: Abdominal Pain Stated Complaint: ABD PAIN/PANCREATISIS Time Seen by Provider: 01/27/19 14:29 Allergies/Adverse Reactions: Patient Allergies Allergy/AdvReac Type Severity Reaction Status Date / Time No Known Allergies Allergy Verified 04/19/16 15:05 Home Medications: Home Medication List Medication Instructions Recorded Confirmed Last Taken Type ROSUVAstatin [Crestor] 40 mg PO QHS 07/23/16 08/17/17 08/17/17 History Ezetimibe [Zetia] 1 tab PO DAILY 08/17/17 08/17/17 08/17/17 History Insulin Aspart [Novolog Flexpen] 100 unit SQ DIRECTED 08/17/17 08/17/17 08/17/17 History CefTRIAXONE [Rocephin] 1 gm IV Q24H vial 08/25/17 Unknown Rx Hydrocodone/APAP 7.5 mg/325 mg 1 ea PO Q6H PRN PRN #20 tab 08/25/17 Unknown Rx [[place]-7.5] Lactulose 30 ml PO BID #2 udc 08/25/17 Unknown Rx Lipase/Protease/Amylase [Creon] 12,000 units PO TID CC #180 cap 08/25/17 Unknown Rx Multivit,Fe,Ca,FA & Min [Thera M 1 ea PO DAILY #100 tab 08/25/17 Unknown Rx Plus] Olanzapine [Zyprexa] 10 mg PO QHS #30 tab 08/25/17 Unknown Rx Omeprazole [Prilosec] 40 mg PO DAILY@0700 #60 cap 08/25/17 Unknown Rx Polyethylene Glycol 3350 [Miralax] 34 gm PO BID powder, packet 08/25/17 Unknown Rx Thiamine [Vitamin B-1] 100 mg PO DAILY #30 tab 08/25/17 Unknown Rx - History of Present Illness-ABD Nature of Presenting Problems: reports generalized starting with his mid-abd pain radiated to his epigastric area and lateralized for last 4 days, unable to eat and had a vomiting x1. denied diarrhea, chills. but saying he "was burning up yesterday". history of alcohol use, reports has not taken alcohol for 2 wks now. was adx with stomach trouble on and the medicine but since n/v he has not taken it. has been using aspirin 15 pills at a time to help with the abd pain and tylenol which has not relieving it. has pain when he urinated. Review of Systems - Adult - REVIEW OF SYSTEMS - ADULT Constitutional: reports: no symptoms reported Eyes: reports: no symptoms reported Ears, Nose, Mouth & Throat: reports: no symptoms reported Cardiovascular: reports: no symptoms reported Respiratory: reports: no symptoms reported Gastrointestinal: reports: no symptoms reported Genitourinary: reports: no symptoms reported Musculoskeletal: reports: no symptoms reported Integumentary: reports: no symptoms reported Neurological: reports: no symptoms reported Psychiatric: reports: no symptoms reported Endocrine: reports: no symptoms reported Hematologic/Lymphatic: reports: no symptoms reported Allergic/Immunologic: reports: no symptoms reported All Other Systems: Reviewed and Negative Past History - Adult - PAST MEDICAL HISTORY-ADULT Review of Records: reports: Old Records Reviewed, Nursing Assessment Review, Medications Reviewed, Social history reviewed & non-contributory. Major Childhood Illnesses: reports: denies history Cardiovascular: reports: CHF, HTN Respiratory: reports: denies history Gastrointestinal: reports: GERD, pancreatitis Obstetrical/Gynecological: reports: denies history Genitourinary: reports: denies history Musculoskeletal: reports: denies history Neurological: reports: Seizures/Epilepsy Psychiatric: reports: anxiety, schizophrenia Endocrine/Immune: reports: Diabetes Other Conditions: reports: denies history - IMMUNIZATION STATUS Childhood Immunizations: See Nurse Assessment Flu Vaccine: See Nurse Assessment - FAMILY HISTORY Family History: reviewed, not pertinent - SOCIAL HISTORY Smoking: denies Substance Use: none/never Alcohol Use Frequency: never Living Situation: family Physical Exam-General - PHYSICAL EXAM-ADULT Initial Vital Signs Reviewed: Yes - CONSTITUTIONAL General Appearance: appears well, alert, no apparent distress - EYES Eyes: PERRL/EOMI, pink conjunctivae - HEAD, EARS, NOSE, MOUTH & THROAT HENMT: normocephalic/atraumatic, moist mucous membranes Progress - PLAN OF CARE/RESULTS Progress/Plan/Lab Results: Vital Signs - 8 hr 01/27/19 14:25 Temperature 97.4 F L Pulse Rate 118 H Respiratory Rate 22 Blood Pressure 138/97 O2 Sat by Pulse Oximetry 99 Orders Category Date Time Status Cardiac Monitoring DIRECTED Care 01/27/19 14:31 Active IV Insertion ORDERED Care 01/27/19 14:31 Active Notify MD of + Sepsis Screen NOW Care 01/27/19 14:31 Active Notify Physician As Ordered Care 01/27/19 14:31 Active CHEST-1 VIEW [RAD] Stat Exams 01/27/19 14:[address] ABD/PELVIS W/IV CONT ONLY [CT] Stat Exams 01/27/19 14:40 Ordered BLOOD CULTURE [BLDCUL] Stat Lab 01/27/19 14:31 Uncollected CBC WITH DIFF [HEME] Stat Lab 01/27/19 14:31 Uncollected CK PROFILE [SP CHEM] Stat Lab 01/27/19 14:31 Uncollected COMPREHENSIVE METABOLIC PANEL [CHEM] Stat Lab 01/27/19 14:31 Uncollected LACTATE, PLASMA [CHEM] Q3H Lab 01/27/19 14:45 Uncollected LACTATE, PLASMA [CHEM] Q3H Lab 01/27/19 17:45 Uncollected LACTATE, PLASMA [CHEM] Q3H Lab 01/27/19 20:45 Uncollected LIPASE [CHEM] Stat Lab 01/27/19 14:38 Uncollected PROTIME WITH INR [COAG] Stat Lab 01/27/19 14:31 Uncollected PTT [COAG] Stat Lab 01/27/19 14:31 Uncollected TROPONIN T Stat Lab 01/27/19 14:31 Uncollected URINALYSIS W/POSS RFLX CULT [URINALYSIS] Stat Lab 01/27/19 14:31 Uncollected 0.9% Sodium Chloride Inj [Ns] 1,000 ml Med 01/27/19 14:39 Active IV 999 mls/hr Morphine Med 01/27/19 14:39 Discontinued 4 mg IV NOW ONE Ondansetron [Zofran] Med 01/27/19 14:39 Discontinued 4 mg IV NOW ONE Oxygen Device Stat Oth 01/27/19 14:31 Active Result Diagrams: 01/27/19 14:50 01/27/19 14:50 - CONSULTS/PCP/HOSPITALIST Notification #1 *Consult/PCP/Hospitalist*: Dr. Ambrocio Time Discussed: 16:50 (sepsis, pancreatitis) Consult Disposition: Admit Departure - Departure Date of Disposition Decision: 01/27/19 Time of Disposition Decision: 17:01 DIAGNOSIS: Sepsis, Pancreatitis, Disorder of electrolytes, Drug use disorder Disposition: ADMITTED INPATIENT 09 Certified Medical Emergency: Emergent Condition: Stable Referrals and Follow-Ups: Jojo Sosa [Primary Care Provider] - - Critical Care Note This patient required my direct & personal management of CC.: No Attestation - Physician/ RADHA Attestation The physician spent face to face time with patient:: Yes Advanced Practice Provider documentation review:: Supervising physician onsite and consulted in the evaluation and care of this patient. The physician did have a face to face encounter with the patient.
[2019-01-27] MEDS ORDERED: PROTONIX IV ONE (14:59)
[2019-01-27] MEDS ORDERED: SODIUM CHLORIDE 0.9% INJ ONE (14:59)
[2019-01-27 15:27] LABS: BASO# 0.07 X1000 (0.0-0.2); BASO% 0.3 % (0.0-0.8); EOS# 0.02 X1000 (0.0-0.7); EOS% 0.1 % (0.0-10.0); HEMATOCRIT 50.7 % (42.0-52.0); HEMOGLOBIN 18.1 g/dL (14.0-18.0); IMM GRAN# 0.16 X1000 (0.0-0.04); IMM GRAN% 0.7 % (0.0-0.5); LYMPH# 1.93 X1000 (1.2-3.4); LYMPH% 8.5 % (20.5-51.1); MCH 32.9 PG (27-31); MCHC 35.7 g/dL (33-37); MCV 92.2 FL (81-99); MONO# 1.98 X1000 (0.11-0.59); MONO% 8.8 % (1.7-9.3); MPV 9.7 FL (7.4-10.4); NEUT# 18.46 X1000 (1.4-6.5); NEUT% 81.6 % (42.2-75.2); PLT 362 X1000 (130-400); RDW 13.5 % (11.5-14.5); WBC 22.62 X1000 (4.8-10.8)
[2019-01-27 15:36] LABS: INR 0.95; PROTIME 13.5 Seconds (11.0-16.0)
[2019-01-27 15:37] LABS: PTT 32.7 Seconds (22.3-41.8)
[2019-01-27 15:59] LABS: ESTIMATED GFR > 60
[2019-01-27] MEDS ORDERED: ZOSYN 3.375 GM in NS 50 ML IV ONE (15:59)
[2019-01-27 16:06] LABS: ACETAMINOPHEN < 1.2 ug/mL (10-30); AGAP 32; ALB/GLOB RATIO 1.7; ALBUMIN 4.8 g/dL (3.5-5.0); ALKALINE PHOSPHATASE 245 U/L (32-122); BUN 14 mg/dL (8-22); CALCIUM 9.4 mg/dL (8.8-10.2); CHLORIDE 88 mmol/L (98-107); CK PROFILE 30 U/L (24-204); COSMO 279; CREATININE 0.9 mg/dL (0.7-1.2); GLUCOSE 392 mg/dL (70-104); GOT 9 U/L (10-34); GPT 14 U/L (10-44); LIPASE 268 U/L (13-60); POTASSIUM 5.2 mmol/L (3.5-5.1); SALICYLATES 9.15 mg/dL (3-10); SODIUM 131 mmol/L (136-145); TCO2 11 mmol/L (25-35); TOTAL BILIRUBIN 0.42 mg/dL (0.20-1.00); TOTAL PROTEIN 7.7 g/dL (6.3-8.3)
[2019-01-27 16:13] LABS: URINE SOURCE CLEAN CATCH
[2019-01-27 16:18] LABS: BILIRUBIN URINE NEGATIVE (NEGATIVE); BLOOD URINE NEGATIVE (NEGATIVE); COLOR YELLOW; GLUCOSE URINE >1000 mg/dL (NEGATIVE); KETONE URINE >150 mg/dL (NEGATIVE); LEUKOCYTES URINE NEGATIVE (NEGATIVE); NITRITE URINE NEGATIVE (NEGATIVE); PH URINE 5.5; PROTEIN URINE 50 mg/dL (NEGATIVE); SP GRAVITY URINE 1.026; TURBIDITY URINE CLEAR (CLEAR); UROBILINOGEN URINE NORMAL (NORMAL)
[2019-01-27 16:19] LABS: UR EPITHELIAL CELLS <10 /HPF (<10); URINE BACTERIA NEGATIVE /HPF; URINE RBC <10 /HPF (<10); URINE WBC <10 /HPF (<10)
[2019-01-27 16:27] LABS: UR AMPHETAMINES QUAL NONE DETECTED (NONE DETECT); UR BARBITUATES QUAL NONE DETECTED (NONE DETECT); UR BENZODIAZEPIN QUAL PRESUMPTIVE POSITIVE (NONE DETECT); UR CANNABINOIDS QUAL PRESUMPTIVE POSITIVE (NONE DETECT); UR COCAINE QUAL NONE DETECTED (NONE DETECT); UR METHADONE QUAL NONE DETECTED (NONE DETECT); UR OPIATES QUAL PRESUMPTIVE POSITIVE (NONE DETECT); UR OXYCODONE QUAL NONE DETECTED (NONE DETECT); UR PCP QUAL NONE DETECTED (NONE DETECT)
[2019-01-27] MEDS ORDERED: TYLENOL PO PRN (17:05)
[2019-01-27] MEDS ORDERED: ZOFRAN IV PRN (17:05)
--- NOTE | 2019-01-27 17:40 | Diag Imaging Result Doc PS360 ---
EXAM: CT ABD/PELVIS W/IV CONT ONLY HISTORY: pancreatitis TECHNIQUE: Emergency CT of the abdomen and pelvis with contrast COMPARISON: 10/04/2017 FINDINGS: No calcified gallstones or adjacent inflammation. There are multiple small cystic structures in the pancreatic head and uncinate process. Mild inflammation about the pancreatic head with a small amount of fluid. There are calcifications in the pancreas. Mildly prominent lymph nodes about the pancreatic head. Stent in the lower stomach and duodenum. Mild fatty infiltration of the liver. No intrahepatic biliary dilatation. No splenomegaly. Normal adrenal glands. Normal kidneys. No hydronephrosis. Prominent atherosclerosis. No aortic aneurysm. No bowel obstruction. Normal appendix. No abscess. Urinary bladder is distended and is normal. IMPRESSION: Pancreatic mass and adenopathy fairly similar to the prior exam. Chronic pancreatitis. This exam was performed using automated exposure control, adjustment of mA or kV according to patient size, and/or use of iterative reconstruction technique. Electronically signed by Emery Lazcano 01/27/2019 5:38 PM
--- NOTE | 2019-01-27 17:51 | HISTORY AND PHYSICAL ---
HISTORY OF PRESENT ILLNESS: Mr. Thomson reports that his abdomen has been hurting in the last 4 or 5 days, actually a couple weeks now he has had pain. He quit drinking about 2 to 3 weeks, said he had not had a drink in 2 to 3 weeks because of the pain. He reports that he has had a cyst removed or drained through ERCP per Dr. East and sounds like he has had chronic pancreatitis with pseudocyst. He is having more pain in that area consistent with pancreatitis. PAST MEDICAL HISTORY: Best we can glean: 1. He has had chronic pancreatitis. 2. Pseudocyst which has been drained a couple times. 3. Diabetes mellitus type 2. 4. Alcohol abuse. ALLERGIES: No known drug allergies. PAST SURGICAL HISTORY: He has had multiple stents in the common bile duct. 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 FAMILY HISTORY: Notable for heart disease. SOCIAL HISTORY: Lives alone. No illicit drugs. He does smoke and he drinks at least a six-pack a day, but he says he has not had anything to drink in 2 to 3 weeks. REVIEW OF SYSTEMS: General: Not much appetite. He says bowels have not moved in 4 or 5 days. He does not report any fever or chills. HEENT: No change in vision or hearing acuity. Neck: No neck pain. No cervical adenopathy. Respiratory: No increased cough. No pleuritic pain. No real shortness of breath. Cardiovascular: No chest pain or tachy palpitation. GI And : Has abdominal pain, epigastric, left upper quadrant, but really kind of hurt he said from [id number] in the mid abdomen. No gross hematuria or dysuria. Musculoskeletal/Neurologic: No focal complaints. Endocrinologic/Hematologic: No significant history. PHYSICAL EXAMINATION: VITAL SIGNS: Temperature 97.4, pulse 118, respirations 22, blood pressure 138/97. EYES: Pupils are equal and round. LUNGS: Clear in all lung palacios anterior lateral. CARDIOVASCULAR: Regular rhythm and rate. PMI nondisplaced. Carotid, radial, and femoral pulses 2+ and symmetrical. ABDOMEN: Tender epigastrium, tender in the left upper quadrant. No distention. EXTREMITIES: No sign of pedal edema. INTEGUMENTARY: I did not see or appreciate any rashes or oral nasal mucosa lesions. Weight is 135 pounds, height is 5 feet 8 inches. LAB: White count 22,620, hematocrit 50, hemoglobin is 18, platelet count 362,000. Sodium 131, potassium 5.2, chloride 88, BUN 14, creatinine 0.9, blood sugar 392. AST is 9, ALT is 14, alkaline phosphatase is 245, albumin 4.8. ProTime 13.5. Urine drug screen positive for opiates, positive for benzodiazepine, positive for cannabinoids. He did admit to smoking marijuana. Chest x-ray: No pneumonia. No sign of infiltrate. The lungs are well expanded. Heart is not enlarged. ASSESSMENT AND PLAN: 1. Chronic pancreatitis, looks like acute on chronic. He has got a pseudocyst. He has had it drained before. We will consult Dr. East. I think we will put him on Zosyn at the present time, just to cover for gram-negative anaerobes. We will give him 3.375 g IV q.6 we will give him normal saline at 85 mL an hour. For his pain, looks like he was taking hydrocodone at home, so we will let him have Barron 7.5, one q.4 hours p.r.n. pain. 2. Diabetes mellitus type 2. Check pattern sugars. We will check his T4, TSH, B12 and folate. We will check a hemoglobin A1c in the morning. Put him on a sliding scale. 3. He claims he has not drank anything in a couple weeks, but there is still a chance of alcohol withdrawal or even delirium tremens. 4. Hypercholesterolemia. 5. History of depression. 6. Note, he is taking Creon for pancreatic supplement. We will need to continue that 12,000 units p.o. t.i.d. 7. We will just do a sliding scale. 8. We will keep him on his Zetia 1 tablet daily and Zyprexa. He is on 10 mg a day now of Zyprexa at bedtime. 9. We will put him on omeprazole 40 mg twice a day. cc: Srini Krause MD
[2019-01-27] MEDS ORDERED: VANCOMYCIN IV PER PHARMACY MISC SCH (18:30)
[2019-01-27] MEDS ORDERED: VANCOMYCIN 1,800 MG in NS 250 ML IV ONE (20:00)
[2019-01-27] MEDS: NORCO-7.5 PO PRN (20:38)
[2019-01-27] MEDS: CRESTOR PO SCH (20:39)
[2019-01-27] MEDS: HUMULIN R SUBQ SCH (20:40)
[2019-01-27] MEDS: LACTULOSE PO SCH (20:40)
[2019-01-27] MEDS: MIRALAX PO SCH (20:41)
[2019-01-27] MEDS: ZYPREXA PO SCH (21:11)
[2019-01-27] MEDS: ZOSYN 3.375 GM in NS 50 ML IV SCH (23:17)
[2019-01-28] MEDS: ZOSYN 3.375 GM in NS 50 ML IV SCH ×3 (03:49→16:51)
[2019-01-28] MEDS: NORCO-7.5 PO PRN ×4 (03:49→20:46)
[2019-01-28] MEDS: HUMULIN R SUBQ SCH ×4 (06:21→20:46)
[2019-01-28] MEDS: PRILOSEC PO SCH (06:21)
[2019-01-28 07:53] LABS: BASO# 0.05 X1000 (0.0-0.2); BASO% 0.4 % (0.0-0.8); EOS# 0.02 X1000 (0.0-0.7); EOS% 0.1 % (0.0-10.0); HEMOGLOBIN 17.3 g/dL (14.0-18.0); IMM GRAN# 0.05 X1000 (0.0-0.04); IMM GRAN% 0.4 % (0.0-0.5); LYMPH# 1.47 X1000 (1.2-3.4); LYMPH% 10.7 % (20.5-51.1); MCV 91.4 FL (81-99); MONO# 1.19 X1000 (0.11-0.59); MONO% 8.7 % (1.7-9.3); MPV 9.5 FL (7.4-10.4); NEUT# 10.92 X1000 (1.4-6.5); NEUT% 79.7 % (42.2-75.2); PLT 233 X1000 (130-400); RBC 5.25 XMIL (4.7-6.1); RDW 13.3 % (11.5-14.5)
[2019-01-28 07:55] LABS: INR 0.99; PROTIME 13.8 Seconds (11.0-16.0); PTT 33.1 Seconds (22.3-41.8)
[2019-01-28 08:29] LABS: HEMOGLOBIN A1C 9.5 % (4.8-6.0)
[2019-01-28 08:40] LABS: FREE T4 1.15 ng/dL (0.93-1.70); TSH 1.27 uIUmL (0.27-4.20)
[2019-01-28 08:49] LABS: AGAP 21; ALB/GLOB RATIO 1.4; ALKALINE PHOSPHATASE 186 U/L (32-122); BUN 7 mg/dL (8-22); CALCIUM 8.4 mg/dL (8.8-10.2); CHLORIDE 97 mmol/L (98-107); COSMO 273; CREATININE 0.7 mg/dL (0.7-1.2); ESTIMATED GFR > 60; GLUCOSE 257 mg/dL (70-104); GOT 9 U/L (10-34); GPT 10 U/L (10-44); MAGNESIUM 1.8 mg/dL (1.5-2.7); POTASSIUM 3.4 mmol/L (3.5-5.1); SODIUM 133 mmol/L (136-145); TCO2 15 mmol/L (25-35); TOTAL BILIRUBIN 0.58 mg/dL (0.20-1.00); TOTAL PROTEIN 6.8 g/dL (6.3-8.3)
[2019-01-28] MEDS: CREON PO SCH ×3 (10:00→16:51)
[2019-01-28] MEDS: ZETIA PO SCH (10:00)
[2019-01-28] MEDS: VITAMIN B-1 PO SCH (10:00)
[2019-01-28] MEDS: THERA M PLUS PO SCH (10:00)
[2019-01-28] MEDS: LACTULOSE PO SCH ×2 (10:01→20:46)
[2019-01-28] MEDS: MIRALAX PO SCH ×2 (10:01→20:45)
[2019-01-28] MEDS: NICODERM PATCH TD PRN (14:12)
[2019-01-28] MEDS: VANCOMYCIN 1,500 MG in NS 250 ML IV SCH (15:23)
--- NOTE | 2019-01-28 18:37 | GASTROENTEROLOGY CONSULTATION ---
DATE: 01/28/2019 REASON FOR CONSULTATION: Recurrent pancreatitis. HISTORY OF PRESENT ILLNESS: Mr. Thomson had another spell of increasing abdominal pain in to 3 weeks. He had a history of chronic pancreatitis. He had a metal stent along with pancreatic stents that were placed a long time ago. Last year I did cleaning of the stents with purulent drainage from pseudocyst. We have done an extensive cleaning and followed by antibiotics. He has done fairly well for more than a year before, comes in with similar symptoms. PAST MEDICAL HISTORY: 1. Chronic pancreatitis, with pseudocyst drain. 2. Diabetes. 3. Alcoholism. ALLERGIES: None. PAST SURGICAL HISTORY: 1. Stents in the pancreatic pseudocyst. 2. Cataract surgery. FAMILY HISTORY: Heart disease. SOCIAL HISTORY: Lives alone. No drugs. Does smoke and drink, but has not been for the last few days. REVIEW OF SYSTEMS: Negative. PHYSICAL EXAMINATION: Vital Signs: Temperature 97.4, pulse 180, respirations 22, blood pressure 138/97. HEENT: No significant jaundice. Conjunctival pallor. Neck: Supple. Trachea midline. Abdomen: Tender in the epigastrium. Extremities: Unremarkable. LABORATORY DATA: White count 22 with hemoconcentrated with hemoglobin 18 and hematocrit 50. Alkaline phosphatase is high at 245 which has come down. His urine drug screen is positive for several things. IMPRESSION AND PLAN: 1. Recurrent chronic pancreatitis with possible infected pseudocyst and blockage of stent. 2. Diabetes mellitus type 2. 3. Depression. 4. Alcoholism. 5. Chronic pancreatic insufficiency. 6. GI prophylaxis. We will follow him. He would require antibiotics for a few days and we will prior to discharge do a thorough cleansing of the bile duct and culture them. I will follow him with you. cc: MD NUBIA Carpenter
[2019-01-28] MEDS: ZYPREXA PO SCH (20:46)
[2019-01-28] MEDS: CRESTOR PO SCH (20:46)
[2019-01-29] MEDS: NORCO-7.5 PO PRN ×5 (03:14→21:04)
[2019-01-29] MEDS: ZOSYN 3.375 GM in NS 50 ML IV SCH ×4 (03:16→21:01)
[2019-01-29] MEDS: PRILOSEC PO SCH (06:47)
[2019-01-29] MEDS: HUMULIN R SUBQ SCH ×4 (06:47→21:14)
--- NOTE | 2019-01-29 07:27 | EKG Report ---
Test Performed on : 01/28/2019 06:34:35 AM Test Reason : chest pain Blood Pressure : / mmHG Vent. Rate : 096 BPM Atrial Rate : 096 BPM P-R Int : 196 ms QRS Dur : 090 ms QT Int : 378 ms P-R-T Axes : 062 -68 054 degrees QTc Int : 477 ms Normal sinus rhythm. Left anterior fascicular block Cannot rule out Inferior infarct (masked by fascicular block?) , age undetermined Anteroseptal infarct (cited on or before 19-APR-2016) Abnormal ECG When compared with ECG of 19-APR-2016 16:04, Minimal criteria for Inferior infarct are now present Questionable change in initial forces of Anteroseptal leads Nonspecific T wave abnormality no longer evident in Anterior leads Confirmed by Benigno STUBBS, Mani Dewitt ([id number]) on 01/30/2019 12:41:46 PM
[2019-01-29] MEDS: ZETIA PO SCH (08:08)
[2019-01-29] MEDS: CREON PO SCH ×3 (08:08→16:21)
[2019-01-29] MEDS: VANCOMYCIN 1,500 MG in NS 250 ML IV SCH (08:08)
[2019-01-29] MEDS: VITAMIN B-1 PO SCH (08:08)
[2019-01-29] MEDS: LACTULOSE PO SCH ×2 (08:08→21:07)
[2019-01-29] MEDS: MIRALAX PO SCH ×2 (08:11→21:13)
[2019-01-29] MEDS: THERA M PLUS PO SCH (08:11)
[2019-01-29] MEDS: NICODERM PATCH TD PRN (08:14)
--- NOTE | 2019-01-29 14:56 | PROGRESS NOTE ---
DATE: 01/29/2019 SUBJECTIVE: Mr. Thomson is feeling better. He is eating a regular diet, but he states the pain is still present but much less intense. He did see Dr. East. OBJECTIVE: Vital signs: Temperature 97.9 degrees, pulse 93, respirations 18, blood pressure 121/91. HEENT: Pupils are equal and round. Lungs: Clear in all lung palacios. Cardiovascular: Regular rhythm and rate without murmur or S3. Abdomen: Soft. Skin: Warm and dry. Urine output was 900 mL. LABORATORY: Blood sugar 322, 232, 377. ASSESSMENT AND PLAN: 1. Recurrent pancreatitis, possible infected pseudocyst blockage of stent. Dr. East following. 2. Diabetes mellitus type 2. Continue pattern sugars. He is on a diabetic diet. 3. Depression. 4. Alcoholism. 5. Chronic pancreatic insufficiency. 6. Gastrointestinal prophylaxis. He may require antibiotics for a couple days to see if would help clear his bile duct and culture them. Appreciate Dr. East's help. Continue present orders. He is on vancomycin 1500 mg IV q.18 hours, Zosyn 3.375 g q.6 hours. cc: Srini Krause MD
[2019-01-29] MEDS: ZYPREXA PO SCH (21:07)
[2019-01-29] MEDS: CRESTOR PO SCH (21:07)
[2019-01-30] MEDS: ZOSYN 3.375 GM in NS 50 ML IV SCH ×4 (00:51→21:27)
[2019-01-30] MEDS: VANCOMYCIN 1,500 MG in NS 250 ML IV SCH (01:57)
[2019-01-30] MEDS: NORCO-7.5 PO PRN ×3 (04:57→21:30)
[2019-01-30] MEDS: PRILOSEC PO SCH ×2 (06:29→06:30)
[2019-01-30] MEDS: HUMULIN R SUBQ SCH ×4 (06:35→23:45)
[2019-01-30] MEDS: CREON PO SCH ×3 (08:00→21:34)
[2019-01-30] MEDS: NICODERM PATCH TD PRN (08:16)
[2019-01-30] MEDS: LACTULOSE PO SCH ×3 (09:00→21:34)
[2019-01-30] MEDS: ZETIA PO SCH ×2 (09:00→15:05)
[2019-01-30] MEDS: THERA M PLUS PO SCH ×2 (09:00→15:05)
[2019-01-30] MEDS: MIRALAX PO SCH ×3 (09:00→21:32)
[2019-01-30] MEDS: VITAMIN B-1 PO SCH ×2 (09:00→15:05)
[2019-01-30] MEDS ORDERED: DIPRIVAN 1% ONE ×2 (12:42→13:55)
[2019-01-30] MEDS ORDERED: XYLOCAINE-MPF 2% ONE (13:17)
[2019-01-30] MEDS ORDERED: VERSED ONE (13:18)
--- NOTE | 2019-01-30 17:54 | PROGRESS NOTE ---
DATE: 01/30/2019 SUBJECTIVE: Mr. Thomson is feeling much better. Went down for EGD with Dr. East and I think he changed the stent out. He was having recurrent chronic pancreatitis and possibly infected pseudocyst with blockage of his stent. He feels much better. OBJECTIVE: Vital signs: Temp 98.9 degrees, pulse 95, respirations 16, blood pressure 167/96. HEENT: Pupils are equal and round. Lungs: Clear in all lung palacios. Cardiovascular: Regular rhythm and rate without murmur or S3. Abdomen: Soft. Skin: Warm and dry. Urine output is 600 mL. Blood sugar 240, 240, 289. ASSESSMENT AND PLAN: 1. Chronic pancreatitis, pseudocyst, recurrent pancreatitis, suspect blockage of the stent. Continue present antibiotics. A stent was replaced with EGD today. 2. Diabetes mellitus type 2. 3. Depression. 4. Alcoholism. 5. Chronic pancreatic insufficiency. 6. Gastrointestinal prophylaxis. Continue his proton pump inhibitors and maybe possibly go home tomorrow. cc: Srini Krause MD
[2019-01-30] MEDS ORDERED: ZYPREXA PO SCH (21:00)
[2019-01-30] MEDS: CRESTOR PO SCH (21:33)
[2019-01-30] MEDS: VANCOMYCIN 1,650 MG in NS 250 ML IV SCH (23:39)
[2019-01-31] MEDS: NORCO-7.5 PO PRN ×4 (01:41→11:27)
[2019-01-31] MEDS: ZOSYN 3.375 GM in NS 50 ML IV SCH ×2 (04:27→06:30)
[2019-01-31] MEDS: PRILOSEC PO SCH (06:30)
[2019-01-31] MEDS: HUMULIN R SUBQ SCH ×2 (06:41→11:52)
[2019-01-31 09:09] LABS: BASO# 0.12 X1000 (0.0-0.2); BASO% 1.3 % (0.0-0.8); EOS% 2.1 % (0.0-10.0); HEMATOCRIT 41.1 % (42.0-52.0); IMM GRAN# 0.02 X1000 (0.0-0.04); IMM GRAN% 0.2 % (0.0-0.5); LYMPH# 2.67 X1000 (1.2-3.4); LYMPH% 28.3 % (20.5-51.1); MCHC 36.5 g/dL (33-37); MCV 90.5 FL (81-99); MONO# 1.25 X1000 (0.11-0.59); MONO% 13.3 % (1.7-9.3); MPV 10.3 FL (7.4-10.4); NEUT# 5.17 X1000 (1.4-6.5); NEUT% 54.8 % (42.2-75.2); PLT 231 X1000 (130-400); RBC 4.54 XMIL (4.7-6.1); RDW 12.9 % (11.5-14.5); WBC 9.43 X1000 (4.8-10.8)
[2019-01-31] MEDS: ZETIA PO SCH (09:30)
[2019-01-31] MEDS: MIRALAX PO SCH (09:30)
[2019-01-31] MEDS: THERA M PLUS PO SCH (09:30)
[2019-01-31] MEDS: LACTULOSE PO SCH (09:30)
[2019-01-31] MEDS: VITAMIN B-1 PO SCH (09:30)
[2019-01-31] MEDS: NICODERM PATCH TD PRN (09:41)
[2019-01-31 09:47] LABS: AGAP 12; ALB/GLOB RATIO 1.1; ALBUMIN 3.4 g/dL (3.5-5.0); ALKALINE PHOSPHATASE 423 U/L (32-122); BUN 6 mg/dL (8-22); CALCIUM 8.5 mg/dL (8.8-10.2); CHLORIDE 94 mmol/L (98-107); COSMO 281; CREATININE 0.5 mg/dL (0.7-1.2); ESTIMATED GFR > 60; GLUCOSE 200 mg/dL (70-104); GOT 48 U/L (10-34); GPT 35 U/L (10-44); POTASSIUM 2.7 mmol/L (3.5-5.1); SODIUM 139 mmol/L (136-145); TCO2 33 mmol/L (25-35); TOTAL BILIRUBIN 0.41 mg/dL (0.20-1.00); TOTAL PROTEIN 6.4 g/dL (6.3-8.3)
[2019-01-31] MEDS: CREON PO SCH ×2 (09:48→13:03)
[2019-01-31 12:07] VITALS: BP 137/86
[2019-01-31] MEDS: VANCOMYCIN 1,650 MG in NS 250 ML IV SCH (12:57)
--- NOTE | 2019-01-31 13:59 | DISCHARGE SUMMARY ---
ADMISSION DATE: 01/27/2019 DISCHARGE DATE: 01/31/2019 HOSPITAL COURSE: This is a patient of Dr. Jojo Sosa. Mr. Thomson reported the abdomen was hurting for the last 4 to 5 days. Had a couple weeks of pain. Really quit drinking alcohol 2 to 3 weeks ago; said that he has not had a drink in about 3 weeks. Reports he has had a cyst drained through the ERCP per Dr. East in the past. PAST MEDICAL HISTORY: 1. Chronic pancreatitis. 2. Pseudocyst which has been drained a couple times. 3. Diabetes mellitus type 2. 4. Alcohol abuse. Dr. East was consulted, felt he had recurrent chronic pancreatitis, possible infected pseudocyst and blockage of stent, and this was another spell of increasing abdominal pain. He has a metal stent along with pancreatic stents that were placed a long time ago, and last year Dr. East did clean those stents and had some purulent drainage from the pseudocyst, so was admitted to the hospital. Pain controlled Dr. East drained the stents again, and he had really instant relief of pain. We did treat him with some antibiotics and felt like he could go home on 01/31/2019. DISCHARGE MEDICATIONS: We will give him some hydrocodone if he needs it 7.5 mg. I gave him 20 of them q. 4 hours p.r.n., lactulose 30 mL b.i.d., Creon lipase, protease and amylase combination 12,000 units p.o. t.i.d., Thera M 1 a day, NicoDerm patch 21 mg a day, Zyprexa 10 mg at bedtime, Prilosec 40 mg a day. I think I will put him on Augmentin 875 mg b.i.d. for another 5 days, MiraLAX 34 g p.o. b.i.d., Crestor 40 mg a day, vitamin B 1 which is thiamine 100 mg p.o. daily. cc: Srini Krause MD
--- NOTE | 2019-01-31 19:16 | PROVIDER PROGRESS NOTE ---
Progress Note SUBJECTIVE: Patient underwent ERCP yesterday that was uncomplicated. No acute overnight events. Afebrile. Patient tolerated diet last evening. He reports some mild upper abdominal and RUQ pain. No N/V, CP, SOB. He has bowel movement this morning. He is requesting discharge. OBJECTIVE: Last Vital Signs Temp 98.9 F 01/31/19 12:00 Pulse 88 01/31/19 12:00 Resp 20 01/31/19 12:00 BP 137/86 01/31/19 12:00 Pulse Ox 98 01/31/19 12:00 Height 5 ft 8 in Weight 135 lb GEN: awake, alert, NAD, chronically ill-appearing HEENT: anicteric, MMM NECK: supple, no jvd PULM: CTAB, no wheezing CV: RRR, no mrg ABD: ND, mild TTP upper abdomen, no rebound or guarding, BS present EXT: no cce NEURO: nonfocal LABS: 01/31/19 01/31/19 08:35 08:35 WBC 9.43 Hgb 15.0 Plt Count 231 Sodium 139 Potassium 2.7 L Chloride 94 L Carbon Dioxide 33 BUN 6 L Creatinine 0.5 L Glucose 200 H Total Bilirubin 0.41 AST 48 H ALT 35 Alkaline Phosphatase 423 H Total Protein 6.4 Albumin 3.4 L A/P: Mr. [place] Thomson is a 48 year old man with history of chronic pancreatitis 2/2 to ETOH abuse c/b pseudocyst s/p CBD stents (including metal) and drainage who presented with abdominal pain, leukocytosis, and volume depletion. The patient underwent ERCP yesterday. He is feels better this AM. #Chronic pancreatitis - complete ETOH cessation encouraged - avoid smoking - low fat diet - recommend referral to [facility] for EUS and possible endoscopic pseudocyst drainage # Abdominal pain: improved; tolerating diet without vomiting # ETOH abuse: cessation as above # Leukocytosis: improved # Volume depletion: improved with IVFs Patient was discharged today. Plan to follow-up with Dr. East. Please call with questions
--- NOTE | 2019-02-02 08:45 | Diag Imaging Result Doc PS360 ---
EXAM: ERCP-BILIARY AND PANCREATIC 01/30/2019 HISTORY: Pancreatic head mass and Jaundice TECHNIQUE: Three views COMMENT: There is narrowing of the distal half of the common bile duct. A stent was placed by Dr. Hoffman. 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 Electronically signed by Angel Louis 02/02/2019 8:43 AM
--- NOTE | 2019-03-06 12:52 | OPERATIVE NOTE ---
PROCEDURE DATE: 01/29/2019 PROCEDURE: 1. Endoscopic retrograde cholangiopancreatography. 2. Basket sweep and lavage. PREOPERATIVE DIAGNOSIS: Infected pseudocyst. POSTOPERATIVE DIAGNOSIS: Infected pseudocyst. DESCRIPTION OF PROCEDURE: After informed consent and adequate intravenous sedation, the scope was introduced into the esophagus, stomach, and duodenum. The patient has 2 stents, 1 in stomach going into the pancreatic pseudocyst and there is 1 in the duodenum. The stent that is going through the stomach is completely occluded with food debris. This was replaced all the way to the pancreatic bed. There is a small amount of pus, this was lavaged and then I went into the duodenal stent, that was completely occluded. That was removed and replaced with another 10- Divehi, 5 cm stent. The scope was withdrawn. The patient tolerated the procedure well without any immediate complications. cc: Shamar East MD
== END 2019-01-31 16:01 | disposition home or self-care (01) | DRG 920 ==
LOC: ED 14:21 → 3N 17:33
PROVIDERS: ATTEND Emergency Medicine
PROC: EN.ERCP (2019-01-30 13:25)
CPT/HCPCS: 71010; 71045; 74177; 74330; 80053; 80101; 80196; 80202; 80301; 80307; 80324; 80329; 80345; 80346; 80353; 80358; 80361; 80365; 81001; 82003; 82550; 82607; 82746; 82948; 83036; 83605; 83690; 83735; 83992; 84439; 84443; 84484; 85025; 85610; 85730; 87040; 87077; 87186; 93005; 93010; 94761; 96361; 96365; 96375; 99285; A9270; C2617; C9113; G0431; G0434; G0479; G0480; G6038; G6039; J2250; J2270; J2405; J2543; J3370; J7030; J7050; Q9966; Q9967; S0164; XXXXX

== ENCOUNTER 2019-02-14 14:24 | Inpatient (IN) ==
[2019-02-14] MEDS ORDERED: MORPHINE IV ONE (16:11)
[2019-02-14] MEDS ORDERED: ZOFRAN IV ONE (16:11)
[2019-02-14 16:24] LABS: BASO# 0.05 X1000 (0.0-0.2); BASO% 0.3 % (0.0-0.8); EOS# 0.17 X1000 (0.0-0.7); EOS% 0.9 % (0.0-10.0); HEMATOCRIT 43.6 % (42.0-52.0); HEMOGLOBIN 15.5 g/dL (14.0-18.0); IMM GRAN% 0.5 % (0.0-0.5); LYMPH# 1.46 X1000 (1.2-3.4); LYMPH% 7.6 % (20.5-51.1); MCH 32.7 PG (27-31); MCHC 35.6 g/dL (33-37); MONO# 1.58 X1000 (0.11-0.59); MONO% 8.2 % (1.7-9.3); MPV 10.3 FL (7.4-10.4); NEUT% 82.5 % (42.2-75.2); PLT 321 X1000 (130-400); RBC 4.74 XMIL (4.7-6.1); RDW 13.7 % (11.5-14.5); WBC 19.16 X1000 (4.8-10.8)
[2019-02-14 16:43] LABS: ESTIMATED GFR > 60
[2019-02-14 16:45] LABS: AGAP 19; ALKALINE PHOSPHATASE 403 U/L (32-122); AMYLASE 134 U/L (20-200); BUN 8 mg/dL (8-22); CALCIUM 8.9 mg/dL (8.8-10.2); CHLORIDE 87 mmol/L (98-107); COSMO 268; CREATININE 0.7 mg/dL (0.7-1.2); GLUCOSE 229 mg/dL (70-104); GOT 15 U/L (10-34); GPT 19 U/L (10-44); LIPASE 214 U/L (13-60); POTASSIUM 3.3 mmol/L (3.5-5.1); SODIUM 131 mmol/L (136-145); TCO2 25 mmol/L (25-35); TOTAL BILIRUBIN 0.26 mg/dL (0.20-1.00); TOTAL PROTEIN 8.2 g/dL (6.3-8.3)
--- NOTE | 2019-02-14 16:54 | Diag Imaging Result Doc PS360 ---
EXAM: CT ABDOMEN/PELVIS W/O CONTRAST 02/14/2019 HISTORY: abdominal pain TECHNIQUE: This exam was performed using automated exposure control, adjustment of mA or kV according to patient size, and/or use of iterative reconstruction technique. COMMENT: There is no evidence of acute disease in the visualized portion of the chest. There is thickening of the wall the gallbladder. There is some prominence of the periportal zones in the liver. There appears to be matted adenopathy in the jonnie hepatis and celiac axis region. There is also retroperitoneal adenopathy with periaortic nodes measuring up to 2.2 cm. This was also present at the time the previous study. There is a stent in the common bile duct. There are multiple calcifications in the pancreatic head. There is some calcification in the body of the pancreas. The tail and the pancreas is much less optimal than on the previous contrast study of 01/27/2019. The adrenal glands are stable in appearance. The spleen is not enlarged. There are calcifications in the abdominal aorta and the renal vasculature bilaterally. There is no evidence of nephrolithiasis or hydronephrosis. The appendix is not distended. The urinary bladder is slightly distended. The small bowel is not distended. There is an apparent fluid collection adjacent to the gallbladder which was not present at the time the previous study. There is inflammatory change or neoplastic change engulfing the transverse colon, possibly via the transverse mesocolon. Stool in the ascending colon. The regional skeleton is stable in appearance. IMPRESSION: 1. Periportal edema and possible acalculous cholecystitis. Adenopathy in the jonnie hepatis. 2. Phlegmonous change versus spread of carcinoma to the transverse colon on the right between the pancreatic head and the gallbladder. Changes consistent with chronic pancreatitis with multiple calcifications in the pancreas. Retroperitoneal adenopathy. Electronically signed by Angel Louis 02/14/2019 4:52 PM
--- NOTE | 2019-02-14 17:25 | PROVIDER DOCUMENTATION ---
This chart was entered by Kasandra Olivo Scribe, acting as scribe for Rachel Montague MD. HPI-Abdominal Pain/GI Problem - General Chief Complaint: Abdominal Pain Stated Complaint: ABD PAIN Time Seen by Provider: 02/14/19 15:25 Source: patient Allergies/Adverse Reactions: Patient Allergies Allergy/AdvReac Type Severity Reaction Status Date / Time No Known Allergies Allergy Verified 04/19/16 15:05 Home Medications: Home Medication List Medication Instructions Recorded Confirmed Last Taken Type Insulin Aspart [Novolog Flexpen] 10 unit SQ DIRECTED 08/17/17 02/14/19 2 Days Ago History ~01/27/19 Aspirin 325 mg PO DAILY 02/14/19 02/14/19 Unknown History Famotidine 40 mg PO DAILY 02/14/19 02/14/19 Unknown History Losartan [Cozaar] 25 mg PO DAILY 02/14/19 02/14/19 Unknown History Olanzapine [Zyprexa] 15 mg PO QHS 02/14/19 02/14/19 Unknown History - History of Present Illness-ABD Nature of Presenting Problems: Patient is a 48 year old male who presents with epigastric and LUQ abdominal p ain with diarrhea. Patient states having a pancreatic stent placed [address] East. Denies nausea and vomiting. Abdominal Pain Onset Location: reports: LUQ, epigastric Pain Radiation: reports: no radiation Quality of Pain: reports: aching Severity in ED: reports: mild Onset/Duration: reports: unsure Timing: reports: improving Activities at Onset: reports: light activity Associated Symptoms: reports: diarrhea Bruising or Bleeding Gums?: No Similar Symptoms Previously?: Yes Recently seen or treated by another doctor?: Yes Review of Systems - Adult - REVIEW OF SYSTEMS - ADULT Constitutional: reports: no symptoms reported. denies: chills, fever, fatique Eyes: reports: no symptoms reported Ears, Nose, Mouth & Throat: reports: no symptoms reported Cardiovascular: reports: no symptoms reported Respiratory: reports: no symptoms reported Gastrointestinal: reports: see HPI, abdominal pain (epigastric and LUQ), diarrhea. denies: nausea, vomiting Genitourinary: reports: no symptoms reported. denies: dysuria, hematuria, urinary retention Musculoskeletal: reports: no symptoms reported Integumentary: reports: no symptoms reported Neurological: reports: no symptoms reported Psychiatric: reports: no symptoms reported Endocrine: reports: no symptoms reported Hematologic/Lymphatic: reports: no symptoms reported Allergic/Immunologic: reports: no symptoms reported All Other Systems: Reviewed and Negative Past History - Adult - PAST MEDICAL HISTORY-ADULT Review of Records: reports: Old Records Reviewed, Nursing Assessment Review, Medications Reviewed, Social history reviewed & non-contributory. Major Childhood Illnesses: reports: denies history Cardiovascular: reports: CHF, HTN Respiratory: reports: denies history Gastrointestinal: reports: GERD, pancreatitis Obstetrical/Gynecological: reports: denies history Genitourinary: reports: denies history Musculoskeletal: reports: denies history Neurological: reports: Seizures/Epilepsy Psychiatric: reports: anxiety, schizophrenia Endocrine/Immune: reports: Diabetes Other Conditions: reports: denies history - PRIOR SURGERIES/PROCEDURES Surgical/Procedure History: reports: recent surgery (pancreatic stent 3 weeks ago), reviewed, not pertinent - IMMUNIZATION STATUS Childhood Immunizations: See Nurse Assessment Flu Vaccine: See Nurse Assessment - FAMILY HISTORY Family History: reviewed, not pertinent - SOCIAL HISTORY Smoking: cigarettes, greater than 1 pack/day Provider spent 3-5 mins advising pt. on dangers of tobacco.: Discussed manners to quit use, and f/u contacts for add'l counseling. Substance Use: alcohol Alcohol Use Frequency: occasionally Living Situation: alone Physical Exam-General - PHYSICAL EXAM-ADULT Initial Vital Signs Reviewed: Yes - CONSTITUTIONAL General Appearance: alert, no apparent distress. negative: lethargic, slow to respond - HEAD, EARS, NOSE, MOUTH & THROAT HENMT: normocephalic/atraumatic, moist mucous membranes. negative: angioedema, hearing deficit - RESPIRATORY Respiratory: chest non-tender, lungs clear, normal breath sounds. negative: crackles, rhonchi, wheezing - CARDIOVASCULAR Cardiovascular: normal peripheral pulses, regular rate, rhythm. negative: tachycardia, systolic murmur - GASTROINTESTINAL (ABDOMEN) Abdominal Exam: normal bowel sounds, soft, tenderness (epigastric and LUQ). negative: guarding, rebound - MUSCULOSKELETAL Extremity: non-tender, normal inspection. negative: deformity, erythema - SKIN Integumentary: normal color, normal turgor, warm/dry. negative: cyanosis, ecchymosis, erythema - NEUROLOGIC Neurologic: grossly normal. negative: aphasia, facial droop - PSYCHIATRIC Psych/Mental Status: normal mood/affect, oriented x 3. negative: anxious Progress - PLAN OF CARE/RESULTS Progress/Plan/Lab Results: Vital Signs - 8 hr 02/14/19 14:30 Temperature 97.5 F L Pulse Rate 110 H Respiratory Rate 20 Blood Pressure 120/77 O2 Sat by Pulse Oximetry 99 Result Diagrams: 02/15/19 06:54 02/14/19 15:51 - CT/MRI 1 CT Study: Abdomen, Pelvis Impression: See EMR Report (EXAM: CT ABDOMEN/PELVIS W/O CONTRAST 02/14/2019 HISTORY: abdominal pain TECHNIQUE: This exam was performed using automated exposure control, adjustment of mA or kV according to patient size, and/or use of iterative reconstruction technique. COMMENT: There is no evidence of acute disease in the visualized portion of the chest. There is thickening of the wall the gallbladder. There is some prominence of the periportal zones in the liver. There appears to be matted adenopathy in the jonnie hepatis and celiac axis region. There is also retroperitoneal adenopathy with periaortic nodes measuring up to 2.2 cm. This was also present at the time the previous study. There is a stent in the common bile duct. There are multiple calcifications in the pancreatic head. There is some calcification in the body of the pancreas. The tail and the pancreas is much less optimal than on the previous contrast study of 01/27/2019. The adrenal glands are stable in appearance. The spleen is not enlarged. There are calcifications in the abdominal aorta and the renal vasculature bilaterally. There is no evidence of nephrolithiasis or hydronephrosis. The appendix is not distended. The urinary bladder is slightly distended. The small bowel is not distended. There is an apparent fluid collection adjacent to the gallbladder which was not present at the time the previous study. There is inflammatory change or neoplastic change engulfing the transverse colon, possibly via the transverse mesocolon. Stool in the ascending colon. The regional skeleton is stable in appearance. IMPRESSION: 1. Constance portal edema and possible acalculous cholecystitis. Adenopathy in the jonnie hepatis. 2. Phlegmonous change versus spread of carcinoma to the transverse colon on the right between the pancreatic head and the gallbladder. Changes consistent with chronic pancreatitis with multiple calcifications in the pancreas. Retroperitoneal adenopathy. Electronically signed by Angel Louis 02/14/2019 4:52 PM 02/14/19 [id number] Interpreting Physician: Angel Louis MD Dictated Date/Time: 02/14/19 1643 cc: Rachel Montague MD; Jojo Sosa) - CONSULTS/PCP/HOSPITALIST Notification #1 *Consult/PCP/Hospitalist*: Dr. Cruz Time Discussed: 17:47 Reason/Comments: Dr. Montague consulted Dr. Cruz about patient. Consult Disposition: other (admit to hospitalist. consult with GI.) Departure - Departure Date of Disposition Decision: 02/14/19 Time of Disposition Decision: 18:30 DIAGNOSIS: Pancreatitis, Leukocytosis Disposition: ADMITTED INPATIENT 09 Certified Medical Emergency: Emergent Condition: Good - Critical Care Note This patient required my direct & personal management of CC.: No Attestation - Physician/ RADHA Attestation Patient care was provided by Advanced Practice Provider:: No The physician spent face to face time with patient:: Yes Advanced Practice Provider documentation review:: Supervising physician onsite and consulted in the evaluation and care of this patient. The physician did have a face to face encounter with the patient. This chart was documented by the indicated scribe, (Kasandra Olivo Scribe) and accurately reflects the services I performed and decisions made by me, Rachel Montague MD, as attested by the provider's signature.
[2019-02-14 17:36] LABS: URINE SOURCE CLEAN CATCH
[2019-02-14] MEDS ORDERED: ZOSYN 3.375 GM in NS 50 ML IV ONE (17:37)
[2019-02-14] MEDS ORDERED: NS 1,000 ML IV ONE (17:38)
[2019-02-14 17:40] LABS: BILIRUBIN URINE NEGATIVE (NEGATIVE); BLOOD URINE NEGATIVE (NEGATIVE); COLOR YELLOW; GLUCOSE URINE >1000 mg/dL (NEGATIVE); KETONE URINE 100 mg/dL (NEGATIVE); LEUKOCYTES URINE NEGATIVE (NEGATIVE); NITRITE URINE NEGATIVE (NEGATIVE); PH URINE 5.5; PROTEIN URINE 100 mg/dL (NEGATIVE); SP GRAVITY URINE 1.028; TURBIDITY URINE CLEAR (CLEAR); UR EPITHELIAL CELLS <10 /HPF (<10); URINE BACTERIA NEGATIVE /HPF; URINE RBC <10 /HPF (<10); URINE WBC <10 /HPF (<10); UROBILINOGEN URINE 2 mg/dL (NORMAL)
[2019-02-14 17:45] LABS: URINE YEAST NONE SEEN
[2019-02-14] MEDS ORDERED: DILAUDID IV ONE (20:26)
[2019-02-14] MEDS ORDERED: LR 1,000 ML IV ONE (20:26)
[2019-02-14] MEDS ORDERED: POTASSIUM CHLORIDE 20 MEQ/SWI 20 MEQ/100 ML IVPB IV ONE (21:23)
--- NOTE | 2019-02-14 22:22 | HISTORY AND PHYSICAL ---
PRIMARY CARE PHYSICIAN: Dr. Jojo Sosa. REASON FOR ADMISSION: Four-day history of abdominal pain. HISTORY OF PRESENT ILLNESS: Mr. Boston Thomson is a 48-year-old male with longstanding history of chronic pancreatitis, who underwent stent placement 2-3 weeks ago for worsening abdominal pain. He said after receiving the stent placed by Dr. East his pain improved. Just 4 days ago, similar pain recurred which he describes as stabbing and radiating to the back, worse with movement. He says he took some antibiotics and hydrocodone, which managed to take the edge off the pain for the next 24 hours. Unfortunately the pain recurred and has been escalating since then. He said the pain got so bad he went to Dr. East's office, but could not get in so decided to come to the ER. He has only had 1 loose nonbloody stool today. No nausea or vomiting. No cardiorespiratory complaints. He said the pain is worse with movement and he has not had anything to eat for the last few days, because he was unable to get out because the pain crippled him. He says his urine output has also declined. He denies any polyuria or polydipsia. No focal neurological complaints. He continues to smoke 3 packs of cigarettes a day, and says he stopped drinking any alcohol a few months ago. No illicit drug use. REVIEW OF SYSTEMS: Twelve-system review was done. Positive findings per HPI. No itching, no dark urine. No change in his stool color. ALLERGIES: None. MEDICATIONS: Not officially reconciled at this point in time, although there is some record he does take Zyprexa 15 mg at bedtime; aspirin 325 mg daily; Cozaar 25 mg a day; famotidine 40 mg daily; insulin NovoLog p.r.n.; vitamin D 1000 units daily; Zetia 10 mg daily. FAMILY HISTORY: Only notable for heart disease. Nobody in first-degree relatives with cancer. SOCIAL HISTORY: See above. PAST SURGICAL HISTORY: He has had cataract surgery and several stents. He also had ORIF of the left lower extremity and partial finger amputation of the right hand. LABORATORY DATA: His lab work is notable for the following: White count 19,000, hematocrit 15 and 40, platelets 321,000, 82% neutrophils. Sodium is 131, potassium 3.3, BUN is 8, creatinine 0.7, glucose 229, alkaline phosphatase is 403. Urinalysis: Glucose is 1000, ketones 100. DIAGNOSTIC DATA: CT abdomen shows periportal edema with possible acalculous cholecystitis, adenopathy in the jonnie hepatitis, phlegmonous change versus possible carcinoma in the transverse colon on the right, between the pancreatic head and the gallbladder. Changes consistent with chronic pancreatitis are also noted. PHYSICAL EXAMINATION: GENERAL: Thin, middle-aged man who is in acute distress from his pain. VITAL SIGNS: Blood pressure 160/80, heart rate 110, respiratory rate 20, temperature is 97.5 degrees. He is 98% on room air. HEENT: Head is normocephalic, atraumatic. Eyes: PERRLA, EOMI. He is anicteric, not pale. ENT and oropharynx exam are grossly normal. NECK: Supple. No JVD or carotid bruit. No thyromegaly. CHEST: Clear when auscultated, with good air entry in both lung palacios. CARDIOVASCULAR: First and second sounds heard. No gallops, murmurs or rubs. Rhythm is regular. ABDOMEN: Scaphoid, soft, with exquisite tenderness in the epigastrium but no rebound or guarding. Bowel sounds are hypoactive. RECTAL: Exam deferred at this time. EXTREMITIES: There are decreased distal pulse volumes. They are regular and symmetric. No clubbing or peripheral cyanosis. NEUROLOGIC: No gross focal deficits. No tremors. SKIN: Intact. No breakdown or erythema. MUSCULOSKELETAL: Exam is grossly normal. ASSESSMENT: 1. Scoie-ex-eagartn pancreatitis. 2. Probable acalculous cholecystitis. 3. Possible pancreatic neoplasm. 4. Hypertension. 5. Hyperlipidemia. 6. Tobacco use. PLAN: For now the patient will be kept NPO. Aggressive IV crystalloid replacement will be done. Electrolyte derangements will also be corrected. Symptomatic control with pain medications will also be instituted. Empiric antibiotics in view of the patient's probable acalculous cholecystitis will also be administered. The patient tells me he has had multiple drainages of pseudocyst which was not noted on this CT scan. This is another reason why I am empirically covering him with antibiotics in case it is an infected pseudocyst, as opposed to a mass that is noted on CT scan. Smoking cessation was strongly reiterated, as smoking is now a known risk factor for pancreatic cancer. We will put the patient on high-dose nicotine patches. Consult Dr. East to see the patient in the a.m. cc: MD Shamar More MD Faye Wilson, MD
[2019-02-15] MEDS ORDERED: TYLENOL PO PRN (01:34)
[2019-02-15] MEDS ORDERED: LOVENOX SUBQ SCH (01:34)
[2019-02-15] MEDS ORDERED: NICODERM PATCH TD ONE (01:34)
[2019-02-15] MEDS ORDERED: ZOFRAN IV PRN (01:34)
[2019-02-15] MEDS ORDERED: LR 1,000 ML IV ONE (01:34)
[2019-02-15] MEDS: OFIRMEV 1000 MG/ISOTONIC SOLN 1,000 MG/100 ML BOTTLE IV SCH ×4 (03:17→21:45)
[2019-02-15] MEDS: ZOSYN 4.5 GM in NS 100 ML IV SCH ×4 (03:18→21:54)
[2019-02-15 07:10] LABS: HEMATOCRIT 36.4 % (42.0-52.0); HEMOGLOBIN 12.8 g/dL (14.0-18.0); MCV 93.6 FL (81-99); RBC 3.89 XMIL (4.7-6.1); WBC 11.06 X1000 (4.8-10.8)
[2019-02-15 07:11] LABS: BASO# 0.06 X1000 (0.0-0.2); BASO% 0.5 % (0.0-0.8); EOS# 0.28 X1000 (0.0-0.7); EOS% 2.5 % (0.0-10.0); IMM GRAN# 0.04 X1000 (0.0-0.04); IMM GRAN% 0.4 % (0.0-0.5); LYMPH# 1.76 X1000 (1.2-3.4); LYMPH% 15.9 % (20.5-51.1); MCH 32.9 PG (27-31); MCHC 35.2 g/dL (33-37); MONO# 1.21 X1000 (0.11-0.59); MONO% 10.9 % (1.7-9.3); MPV 10.1 FL (7.4-10.4); NEUT# 7.71 X1000 (1.4-6.5); NEUT% 69.8 % (42.2-75.2); PLT 222 X1000 (130-400); RDW 13.8 % (11.5-14.5)
[2019-02-15 07:25] LABS: MAGNESIUM 1.6 mg/dL (1.5-2.7)
[2019-02-15] MEDS: DILAUDID IV PRN ×4 (08:51→21:52)
[2019-02-15] MEDS ORDERED: PEPCID PO SCH (09:00)
[2019-02-15] MEDS ORDERED: THERA M PLUS PO ONE (09:17)
[2019-02-15] MEDS: PEPCID IV SCH ×2 (10:09→21:53)
[2019-02-15] MEDS ORDERED: MAGNESIUM SULFATE 2 GM/S.W.I. 2 GM/50 ML IVPB IV ONE (10:12)
[2019-02-15] MEDS: MIRALAX PO SCH ×2 (11:01→21:53)
[2019-02-15] MEDS: NS 1,000 ML IV SCH ×4 (11:29→21:59)
[2019-02-15] MEDS ORDERED: GOLYTELY PO ONE (14:00)
--- NOTE | 2019-02-15 18:37 | GASTROENTEROLOGY CONSULTATION ---
DATE: 02/15/2019 ATTENDING PHYSICIAN: Dr. Martínez. PRIMARY DOCTOR: Dr. Baez. REASON FOR CONSULTATION: Pancreatitis, abdominal pain, nausea and vomiting. HISTORY OF PRESENT ILLNESS: 1. Mr. Thomson is a 48-year-old male who was admitted on 02/14/2019 for worsening abdominal pain in the epigastric region along with nausea and vomiting. He was started on Tuesday night. It persisted over the weekend and got worse. Earlier this week he presented to the hospital with worsening abdominal pain and nausea and vomiting. He had recent ERCP with Dr. East in the end of January where he had a new stent placement in the common bile duct. He has a previous history of chronic pancreatitis complicated with infected pseudocyst and has history of metal stent in the stomach to drain the infected pseudocyst. He also had history of common bile duct stricture likely secondary to chronic pancreatitis requiring ERCP with stent placement. The patient has quit drinking for about more than a month. He continues to smoke 3 packs per day. He also takes a lot of aspirin, which he takes for abdominal pain. The patient had worsening nausea and vomiting over the last few days. Since being admitted, he has not thrown up. He is on IV fluids. The patient denies any vomiting blood. He had imaging done during this admission which showed evidence of periportal edema and possible acalculous cholecystitis. 2. Adenopathy in the jonnie hepatitis. 3. Phlegmonous change versus spread of carcinoma to transverse colon on the right between the pancreatic head and the gallbladder. 4. Changes consistent with chronic pancreatitis, multiple calculus of the pancreas. 5. Retroperitoneal adenopathy. 6. Urinary bladder is slightly distended. There is efferent fluid collection adjacent to the gallbladder which was not present at the time of the previous study. There is also stool in the ascending colon. 7. Retroperitoneal adenopathy with periaortic nodes measuring 2.2 cm. There is thickening of the wall of the gallbladder. PAST MEDICAL HISTORY: 1. Chronic pancreatitis. 2. Infected pancreatic pseudocyst. 3. Common bile duct stricture. 4. Constipation. 5. Alcoholism, quit more than a month ago. 6. Chronic smoker. 7. Hypertension. 8. Reflux disease. 9. Diabetes. 10. Hyperlipidemia. PAST SURGICAL HISTORY: 1. ERCP with stent placement in January 2019. 2. Cataract surgery. 3. Open reduction and internal fixation of the left lower extremity. 4. 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 5. Patient never had a colonoscopy. SOCIAL HISTORY: He has been a heavy alcoholic for many years. Quit about a month ago. He is a heavy smoker, smoked 3 packs per day. Denies any history of illicit drug abuse. FAMILY HISTORY: Notable for heart disease. ALLERGIES: No known drug allergies. MEDICATIONS IN THE HOSPITAL: 1. Multivitamin once daily. 2. Dilaudid 1.5 mg IV q. 3 hours as needed. 3. Tylenol 650 mg every 6 hours. 4. Famotidine 20 mg IV q. 12 hours. 5. Magnesium sulfate replacement IV. 6. Normal fluids at 150 mL/hour. 7. Tylenol 1000 mg IV q. 6 hours. 8. Zofran as needed. 9. MiraLAX 17 g p.o. b.i.d. 10. Zosyn IV q. 6 hours. 11. The patient is currently NPO. REVIEW OF SYSTEMS: Denies any fevers, rigors, chills, chest pain, shortness of breath, dyspnea. Denies any vomiting. Denies any blood in the stools. He feels constipated. He has never had a colonoscopy in the past. He does take aspirin for abdominal pain. Denies any history of major arthritis. He has diabetes. He denies any neurological complaints.Vital Signs: Temperature 98.2, pulse rate 73, respiratory rate 16, blood pressure 120/77, saturating 100% on room air. Body weight of 140 pounds 2 ounces. BMI 21.3 kg/m2. Moderately malnourished, lying in bed, in no acute distress. HEENT: Mild pallor. No icterus. Pupils equal, reactive to light. Neck: Supple. Abdomen: Discomfort in the right upper quadrant. No rebound or guarding. Extremities: No cyanosis, clubbing. Neurologic: Alert, awake, oriented x3. LABS: Hemoglobin and hematocrit is 12.8 and 36.4, white count 11.06, platelet count of 222,000. MCV of 93.6. Blood glucose of 245 yesterday, sodium 131, potassium 3.3, chloride of 87, bicarb 25, anion gap of 19, BUN of 8, creatinine 0.7, glucose of 29, calcium 8.9. Magnesium 1.6. Total bilirubin is 0.2. AST 15, ALT 19. Alkaline phosphatase 43, total protein 8.2, albumin of 4. Amylase of 134, lipase of 188 trending down. Urinalysis is showing positive protein, positive glucose, positive ketones. His lipase is trending down. His last drip his lipase was 260, slowly trending down. IMPRESSION AND PLAN: 1. Abnormal CT scan showing a possibility of mass involving the transverse colon. He has never had a colonoscopy in the past. He is a heavy smoker. 2. Chronic pancreatitis. 3. Common bile duct stricture status ERCP recently in January 2019. 4. History of infected pseudocyst in the pancreas status post drainage endoscopically in the past. 5. Heavy tobacco abuse. 6. History of alcoholism, quit more than a month ago. 7. Mild anemia. 8. Mild liver lipase which could be secondary to chronic pancreatitis. 9. Elevated alkaline phosphatase which could be secondary to chronic pancreatitis and common bile duct stricture. 10. The CT scan did show the stent is in place in the common bile duct. 11. Evidence of thickening of the wall of the gallbladder with possible fluid in the right upper quadrant. Question of cholecystitis. 12. Constipation in the right colon. RECOMMENDATIONS: 1. We will start patient on clear liquid diet. We will schedule him for a colonoscopy tomorrow with Dr. Hoffman to evaluate for any evidence of malignancy in the transverse colon. The patient is hungry and wants to eat. 2. We will keep him on IV fluids. We will keep him on IV antiemetics and IV pain control. I will keep him on GI prophylaxis with famotidine twice daily. The patient was counseled to quit smoking. The patient was counseled to quit using NSAIDs like aspirin. The patient has constipation so we will give him GoLYTELY to help prepare for colonoscopy. After that, he will stay on MiraLAX twice daily. We will check CEA, CA-19-9. We will also call surgery consult for possible cholecystitis. 3. The patient has mild anemia. Continue watch for now. 4. The patient was encouraged to be abstinent from alcohol completely. 5. The above plans for the patient and all questions answered. The risks, benefits, indications, alternatives to the colonoscopy were discussed with the patient. All questions were answered. Please call us with any further questions. cc: MD Darren Chavez MD Faye Wilson, MD
[2019-02-15] MEDS: NICODERM PATCH TD SCH (18:44)
--- NOTE | 2019-02-15 19:04 | PROGRESS NOTE ---
DATE: 02/15/2019 SUBJECTIVE: The patient continues to complain of abdominal pain. OBJECTIVE: Vital Signs: Temperature 97.7, blood pressure 118/75, heart rate 75. Respirations 16, O2 saturations 100% on room air. General: This is an elderly male sitting in bed in no acute distress. Heart: S1, S2 normal. Regular rate and rhythm. Lungs: Clear to auscultation bilaterally. Abdomen: Positive bowel sounds. Soft. Positive for epigastric tenderness. Extremities: No edema, no cyanosis. Neurologic: The patient is alert and oriented x4. LABS: Hemoglobin 12, hematocrit 36, platelets 222, white blood cell count 11. ASSESSMENT AND PLAN: 1. Chronic pancreatitis. Continue with IV fluids and pain management. The patient will be undergoing a colonoscopy tomorrow. 2. Possible acalculous cholecystitis. General surgery has been consulted. 3. Uncontrolled diabetes mellitus type 2. Will start insulin sliding scale. 4. Deep vein thrombosis prophylaxis. Continue with sequential compression devices. cc: Shreya Martínez MD MTDD
[2019-02-15] MEDS: HUMULIN R SUBQ SCH (21:53)
[2019-02-16] MEDS: DILAUDID IV PRN ×6 (01:47→23:21)
[2019-02-16] MEDS: OFIRMEV 1000 MG/ISOTONIC SOLN 1,000 MG/100 ML BOTTLE IV SCH ×2 (04:26→10:13)
[2019-02-16] MEDS: ZOSYN 4.5 GM in NS 100 ML IV SCH ×4 (04:55→21:19)
[2019-02-16] MEDS: NS 1,000 ML IV SCH ×3 (04:56→23:24)
[2019-02-16] MEDS: HUMULIN R SUBQ SCH ×5 (05:59→21:32)
[2019-02-16] MEDS ORDERED: DIPRIVAN 1% ONE ×3 (06:55→08:47)
[2019-02-16] MEDS ORDERED: XYLOCAINE-MPF 2% ONE (06:56)
[2019-02-16 08:26] LABS: BASO# 0.05 X1000 (0.0-0.2); BASO% 0.5 % (0.0-0.8); EOS# 0.17 X1000 (0.0-0.7); EOS% 1.9 % (0.0-10.0); HEMATOCRIT 34.7 % (42.0-52.0); HEMOGLOBIN 12.3 g/dL (14.0-18.0); IMM GRAN# 0.05 X1000 (0.0-0.04); IMM GRAN% 0.5 % (0.0-0.5); LYMPH# 1.83 X1000 (1.2-3.4); MCH 33.2 PG (27-31); MCHC 35.4 g/dL (33-37); MCV 93.8 FL (81-99); MONO# 1.18 X1000 (0.11-0.59); MONO% 12.9 % (1.7-9.3); NEUT# 5.87 X1000 (1.4-6.5); NEUT% 64.2 % (42.2-75.2); PLT 262 X1000 (130-400); RDW 13.6 % (11.5-14.5); WBC 9.15 X1000 (4.8-10.8)
[2019-02-16] MEDS ORDERED: POTASSIUM CHLORIDE 60 MEQ in NS 500 ML IV ONE (08:36)
[2019-02-16] MEDS ORDERED: FENTANYL ONE (08:41)
[2019-02-16 09:20] LABS: AGAP 14; ALB/GLOB RATIO 1.1; ALBUMIN 3.1 g/dL (3.5-5.0); ALKALINE PHOSPHATASE 297 U/L (32-122); BUN 2 mg/dL (8-22); CALCIUM 7.8 mg/dL (8.8-10.2); CHLORIDE 98 mmol/L (98-107); COSMO 275; CREATININE 0.5 mg/dL (0.7-1.2); ESTIMATED GFR > 60; GLUCOSE 157 mg/dL (70-104); GOT 13 U/L (10-34); GPT 11 U/L (10-44); MAGNESIUM 1.7 mg/dL (1.5-2.7); PHOSPHORUS 3.3 mg/dL (2.7-4.5); SODIUM 138 mmol/L (136-145); TCO2 26 mmol/L (25-35); TOTAL BILIRUBIN 0.32 mg/dL (0.20-1.00); TOTAL PROTEIN 5.9 g/dL (6.3-8.3)
[2019-02-16] MEDS: PEPCID IV SCH ×2 (10:21→21:20)
[2019-02-16] MEDS: MIRALAX PO SCH ×2 (10:21→21:20)
[2019-02-16] MEDS: NICODERM PATCH TD SCH (10:21)
[2019-02-16] MEDS: THERA M PLUS PO SCH (10:22)
--- NOTE | 2019-02-16 11:38 | ENDOSCOPY OPERATIVE NOTE ---
[facility] ENDOSCOPY OPERATIVE NOTE , PATIENT: Boston Thomson ADM DATE: MR #: [id number] : 1970 COLONOSCOPY PROCEDURE REPORT PROCEDURE DATE: 02/16/2019 SURGEON: Matthew Hoffman MD STATUS: inpatient DRAMA TEACHER: PREOPERATIVE DIAGNOSIS: The patient is a 49 yr old male here for a colonoscopy due to abnormal CT. PROCEDURE PERFORMED: Colonoscopy, diagnostic MEDICATIONS: Per Anesthesia PREP TYPE: GoLytely
--- NOTE | 2019-02-16 17:09 | CONSULTATION ---
DATE OF CONSULTATION: 02/16/2019 HISTORY: Mr. Boston Thomson is a 49-year-old white male with history of alcohol abuse and chronic pancreatitis. He has had multiple pancreatic duct stents or common bile duct stents per Dr. East because of his ongoing pancreatitis and pseudocysts. He has recently been hospitalized with recurrent epigastric pain. A CT scan of his abdomen and pelvis suggested inflammation around the head of the pancreas and even in the mesocolon. There is a question whether he had thickened gallbladder wall and we were asked to evaluate him. PAST MEDICAL HISTORY: He is deaf in his left ear. He has had cataracts removed. He has diabetes type 2. He has had significant weight loss over the last 5 years. He has intermittent come constipation. He has poor dentition. Generalized weakness. He has had a double compound fracture left lower extremity. He has had a partial right middle finger amputation. He has hypercholesterolemia. He also smokes. MEDICATIONS: Crestor, Zyprexa, insulin and Zetia. ALLERGIES: No known drug allergies. SOCIAL HISTORY: He lives alone. He does drink beer and rum. He is also smoker. REVIEW OF SYSTEMS: 14 point review of systems was performed and except for the history of present illness there is nothing new. FAMILY HISTORY: His mother of cirrhosis, father of heart disease. PHYSICAL EXAMINATION: On exam Mr. Thomson is a slim middle aged white male in no acute distress. HEENT exam no jaundice. No oral lesions. Poor dentition. No cervical or supraclavicular lymphadenopathy. His heart has regular rate. Lungs were clear to auscultation and percussion bilaterally. His abdomen was soft. He was mildly tender in the epigastrium. He had no evidence of hernia. There was no palpable mass. No costovertebral tenderness. Rectal exam was not performed. He does have palpable femoral pulses. He has no significant peripheral edema. Neurologically he has no focal deficit. IMAGING/LABORATORY DATA: His CT scan showed inflammation around the pancreas and the transverse mesocolon. There is a question whether he had thickened gallbladder wall. No gallstones. He underwent colonoscopy. There is no mass within his colon his CEA is within normal limits. Liver function tests are within normal limits. A HIDA scan has been suggested. IMPRESSION: Acute on chronic pancreatitis. He has had recurrent pancreatitis with problems with pancreatic pseudocysts. He has been treated by gastrointestinal medicine with stents. PLAN: I feel that this is related to his recurrent pancreatitis which is being treated and clinically he has improved during this hospitalization. He has no gallstones. Liver function tests are normal. White blood cell count is trending towards normal with current treatment. We will not plan for cholecystectomy at this time. cc: Katarina Mckee MD
--- NOTE | 2019-02-16 17:12 | PROGRESS NOTE ---
DATE: 02/16/2019 SUBJECTIVE: The patient states that his stomach feels a lot better today. He had a colonoscopy today. OBJECTIVE: Vital Signs: Temperature 98.7 degrees, blood pressure 138/80, heart rate 78, respirations 20, O2 saturation 99% on room air. General: This is a chronically ill-appearing male lying in bed in no acute distress. Heart: S1, S2. Normal. Lungs: Equal air entry bilaterally. No crackles. No rales. Abdomen: Positive bowel sounds. Soft, nontender, nondistended. Extremities: No edema, no cyanosis. Neurologic: The patient is alert and oriented x3. LABS: Alkaline phosphatase 297, total protein 5.9, glucose 238. Sodium 138, potassium 3, chloride 98, CO2 26, BUN 2, creatinine 0.5, phosphorus 3.3, magnesium 1.7. ASSESSMENT AND PLAN: 1. Chronic pancreatitis. Slowly improving. The patient states that his abdomen does not hurt as much as it did on admission. We will continue with supportive care. 2. Acalculous cholecystitis. HIDA scan has been ordered. We will monitor closely. Also, general surgery has been consulted. 3. Tobacco dependence. The patient has been counseled about smoking cessation. 4. Retroperitoneal adenopathy with periaortic nodes. Aware. 5. Constipation. Continue with laxative therapy. 6. Diabetes mellitus type 2. Continue on sliding scale insulin. 7. Deep vein thrombosis prophylaxis. Will start the patient on Lovenox. cc: Shreya Martínez MD MTDD
[2019-02-16] MEDS: LOVENOX SUBQ SCH (21:19)
[2019-02-16] MEDS: SODIUM CHLORIDE 0.9% INJ SCH (21:20)
[2019-02-17] MEDS: DILAUDID IV PRN ×2 (04:07→10:00)
[2019-02-17] MEDS: ZOSYN 4.5 GM in NS 100 ML IV SCH ×4 (04:08→21:29)
[2019-02-17] MEDS: NS 1,000 ML IV SCH ×2 (06:30→21:28)
[2019-02-17] MEDS: HUMULIN R SUBQ SCH ×4 (06:30→21:31)
[2019-02-17 07:57] LABS: HEMATOCRIT 38.2 % (42.0-52.0); HEMOGLOBIN 13.2 g/dL (14.0-18.0); MCH 33.2 PG (27-31); MCHC 34.6 g/dL (33-37); MPV 10.3 FL (7.4-10.4); RBC 3.98 XMIL (4.7-6.1); RDW 13.7 % (11.5-14.5); WBC 9.35 X1000 (4.8-10.8)
--- NOTE | 2019-02-17 08:03 | GENERAL SURGERY PROGRESS NOTE ---
DATE: 02/17/2019 SUBJECTIVE: The patient seems to be doing about the same. He is still complaining of abdominal pain. OBJECTIVE: Vital Signs: The patient is currently afebrile. His vital signs are stable. General: No acute distress. Resting. HEENT: Normocephalic and atraumatic. Pupils are equal, round and reactive to light. Mucous membranes are moist. Oropharynx is benign. Neck: Supple. Trachea midline. Cardiovascular: Regular rate and rhythm. Lungs: Grossly clear. Abdomen: Soft. Tender to palpation in the epigastric region, but no peritoneal signs. Extremities: Moves all extremities. Neurologic: Grossly intact. Skin: No signs of jaundice. Vascular: All extremities perfused. LABORATORY DATA: Reviewed from yesterday. ASSESSMENT AND PLAN: A 49-year-old with chronic pancreatitis. 1. Chronic pancreatitis. At this time he does have a HIDA scan pending to look at his gallbladder. We will follow up with the results of that, but otherwise continue supportive care. 2. Colonic polyps. At this time pathology is pending. We will follow up with those results. cc: Sim Wisdom MD
[2019-02-17 08:25] LABS: AGAP 15; ALB/GLOB RATIO 0.9; ALBUMIN 3.1 g/dL (3.5-5.0); ALKALINE PHOSPHATASE 336 U/L (32-122); BUN 1 mg/dL (8-22); CALCIUM 8.2 mg/dL (8.8-10.2); CHLORIDE 95 mmol/L (98-107); COSMO 275; CREATININE 0.4 mg/dL (0.7-1.2); ESTIMATED GFR > 60; GLUCOSE 261 mg/dL (70-104); GOT 16 U/L (10-34); GPT 12 U/L (10-44); POTASSIUM 3.1 mmol/L (3.5-5.1); SODIUM 135 mmol/L (136-145); TCO2 25 mmol/L (25-35); TOTAL PROTEIN 6.5 g/dL (6.3-8.3)
[2019-02-17] MEDS ORDERED: KLOR-CON PO ONE (08:31)
[2019-02-17] MEDS: NICODERM PATCH TD SCH (09:40)
[2019-02-17] MEDS: THERA M PLUS PO SCH (09:41)
[2019-02-17] MEDS: PEPCID IV SCH ×2 (09:41→21:29)
[2019-02-17] MEDS: MIRALAX PO SCH ×2 (09:41→21:31)
[2019-02-17] MEDS ORDERED: INSULIN PEN NEEDLES ONE (09:56)
[2019-02-17] MEDS: LEVEMIR SUBQ SCH (10:01)
--- NOTE | 2019-02-17 13:34 | PROGRESS NOTE ---
DATE: 02/17/2019 SUBJECTIVE: The patient is complaining of some mild abdominal pain since he finished eating breakfast. OBJECTIVE: Vital Signs: Temperature 97 degrees, blood pressure 117/78, heart rate 81, respirations 20, O2 saturation 99% on room air. General: This is a chronically ill-appearing elderly male lying in bed in no acute distress. Heart: S1, S2 normal. Regular rate and rhythm. Lungs: Clear to auscultation bilaterally. Abdomen: Positive bowel sounds. Soft, nontender, nondistended. Extremities: No edema, no cyanosis. Neuro: The patient is alert and oriented x3. LABS: White blood cell count 9.3, hemoglobin 13, hematocrit 38, platelets 317,000. Sodium 135, potassium 3.1, chloride 95, CO2 25, BUN 1, creatinine 0.4, glucose 261. ASSESSMENT AND PLAN: 1. Chronic pancreatitis. Improved. 2. Acalculous cholecystitis. The patient is scheduled to undergo HIDA scan on Tuesday. Gastroenterology and General Surgery are following. 3. Retroperitoneal adenopathy with periaortic nodes. Aware. 4. Tobacco dependence. The patient has been counseled about smoking cessation. 5. Constipation. Continue with laxative therapy. 6. Deep vein thrombosis prophylaxis. Continue on Lovenox. cc: Shreya Martínez MD MTDD
[2019-02-17] MEDS: SODIUM CHLORIDE 0.9% INJ SCH (21:29)
[2019-02-17] MEDS: LOVENOX SUBQ SCH (21:30)
[2019-02-18] MEDS: ZOSYN 4.5 GM in NS 100 ML IV SCH ×4 (03:47→21:13)
[2019-02-18] MEDS: HUMULIN R SUBQ SCH ×4 (06:53→21:13)
--- NOTE | 2019-02-18 07:16 | GENERAL SURGERY PROGRESS NOTE ---
DATE: 02/18/2019 SUBJECTIVE: Patient says he is not having any pain. He says he is feeling better. OBJECTIVE: Vital Signs: Patient is currently afebrile. His vital signs are stable. General: No acute distress. HEENT: Normocephalic, atraumatic. Pupils equal, round, reactive to light. Mucous membranes moist. Oropharynx benign. Neck: Supple. Trachea midline. Cardiovascular: Regular rate and rhythm. Lungs: Grossly clear. Abdomen: Soft, nontender. Extremities: Moves all extremities. Neurologic: Grossly intact. Skin: No signs of jaundice. Vascular: All extremities perfused. LABORATORY DATA: Reviewed from yesterday. ASSESSMENT AND PLAN: A 49-year-old with chronic pancreatitis. 1. Chronic pancreatitis. At this time, he has a HIDA scan pending for tomorrow to evaluate the gallbladder. We will continue current treatment at this point. 2. Colonic polyps. Pathology is pending. We will follow up with those. cc: Sim Wisdom MD
[2019-02-18 07:19] LABS: BASO# 0.09 X1000 (0.0-0.2); EOS# 0.26 X1000 (0.0-0.7); EOS% 2.8 % (0.0-10.0); HEMATOCRIT 34.9 % (42.0-52.0); HEMOGLOBIN 12.3 g/dL (14.0-18.0); IMM GRAN# 0.04 X1000 (0.0-0.04); IMM GRAN% 0.4 % (0.0-0.5); LYMPH# 2.32 X1000 (1.2-3.4); MCHC 35.2 g/dL (33-37); MCV 93.6 FL (81-99); MONO# 0.99 X1000 (0.11-0.59); MONO% 10.7 % (1.7-9.3); MPV 9.4 FL (7.4-10.4); NEUT# 5.59 X1000 (1.4-6.5); NEUT% 60.1 % (42.2-75.2); PLT 356 X1000 (130-400); RBC 3.73 XMIL (4.7-6.1); RDW 13.4 % (11.5-14.5); WBC 9.29 X1000 (4.8-10.8)
[2019-02-18 07:40] LABS: MAGNESIUM 1.5 mg/dL (1.5-2.7); PHOSPHORUS 3.7 mg/dL (2.7-4.5)
[2019-02-18 07:47] LABS: AGAP 13; ALB/GLOB RATIO 1.1; ALBUMIN 3.2 g/dL (3.5-5.0); ALKALINE PHOSPHATASE 381 U/L (32-122); BUN 1 mg/dL (8-22); CALCIUM 8.4 mg/dL (8.8-10.2); CHLORIDE 103 mmol/L (98-107); COSMO 278; CREATININE 0.4 mg/dL (0.7-1.2); ESTIMATED GFR > 60; GLUCOSE 123 mg/dL (70-104); GOT 22 U/L (10-34); GPT 12 U/L (10-44); POTASSIUM 3.4 mmol/L (3.5-5.1); SODIUM 141 mmol/L (136-145); TCO2 25 mmol/L (25-35); TOTAL BILIRUBIN 0.41 mg/dL (0.20-1.00)
[2019-02-18] MEDS ORDERED: KLOR-CON PO ONE (08:27)
[2019-02-18] MEDS ORDERED: MAGNESIUM SULFATE 2 GM/S.W.I. 2 GM/50 ML IVPB IV ONE (08:27)
[2019-02-18] MEDS: NS 1,000 ML IV SCH ×2 (08:57→18:59)
[2019-02-18] MEDS: THERA M PLUS PO SCH (09:00)
[2019-02-18] MEDS: NICODERM PATCH TD SCH (09:00)
[2019-02-18] MEDS: MIRALAX PO SCH ×2 (09:00→21:12)
[2019-02-18] MEDS: PEPCID IV SCH ×2 (09:00→21:12)
[2019-02-18] MEDS: LEVEMIR SUBQ SCH (09:00)
--- NOTE | 2019-02-18 14:52 | PROGRESS NOTE ---
DATE: 02/18/2019 SUBJECTIVE: The patient is resting in bed. He has no complaints. OBJECTIVE: Vital Signs: Temperature 98.5 degrees, blood pressure 135/91, heart rate 73, respirations 20, O2 saturation is 94% on room air. General: This is a chronically ill-appearing, elderly male lying in bed in no acute distress. Heart: S1, S2 normal. Lungs: Clear to auscultation bilaterally. Abdomen: Positive bowel sounds. Soft, nontender, nondistended. Extremities: No edema, no cyanosis. Neurologic: The patient is alert and oriented x3. Labs: Reviewed. ASSESSMENT AND PLAN: 1. Chronic pancreatitis. Improved. 2. Acalculous cholecystitis. The patient is scheduled to undergo a HIDA scan tomorrow. General surgery and gastroenterology are following. 3. Retroperitoneal adenopathy with periaortic nodes. Aware. 4. Uncontrolled insulin-dependent diabetes mellitus. We will increase the patient's long-acting insulin dosage. 5. Constipation. Continue with laxative therapy. 6. Deep vein thrombosis prophylaxis. Continue on Lovenox. cc: Shreya Martínez MD
[2019-02-18] MEDS: SODIUM CHLORIDE 0.9% INJ SCH (21:12)
[2019-02-18] MEDS: LOVENOX SUBQ SCH (21:12)
[2019-02-19] MEDS: NS 1,000 ML IV SCH ×4 (02:29→17:14)
[2019-02-19] MEDS: ZOSYN 4.5 GM in NS 100 ML IV SCH ×4 (04:06→21:24)
[2019-02-19] MEDS: HUMULIN R SUBQ SCH ×4 (06:41→21:26)
--- NOTE | 2019-02-19 08:59 | Diag Imaging Result Doc PS360 ---
HIDA SCAN W/O EJECT. FRACTION - 02/16/2019 INDICATION: r/o acute cholecystitis TECHNIQUE: 5.7 mCi of Choletec was administered COMPARISON: CT from 02/14/2019 FINDINGS: There is normal uptake and clearance by the liver. There is normal excretion into the biliary collecting three and small bowel. However even after over 100 minutes, there is no visible gallbladder. IMPRESSION: Acute cholecystitis. This report was discussed with RT Amelia on 02/19/2019 at 8:56 AM and was readback. Electronically signed by [place] 02/19/2019 8:57 AM
[2019-02-19 10:17] LABS: MAGNESIUM 1.7 mg/dL (1.5-2.7); PHOSPHORUS 4.6 mg/dL (2.7-4.5); POTASSIUM 3.9 mmol/L (3.5-5.1)
[2019-02-19] MEDS: THERA M PLUS PO SCH (10:39)
[2019-02-19] MEDS: SODIUM CHLORIDE 0.9% INJ SCH ×2 (10:40→21:27)
[2019-02-19] MEDS: PEPCID IV SCH ×2 (10:40→21:27)
[2019-02-19] MEDS: LEVEMIR SUBQ SCH (10:40)
[2019-02-19] MEDS: MIRALAX PO SCH ×2 (10:40→21:24)
[2019-02-19] MEDS: NICODERM PATCH TD SCH (10:40)
[2019-02-19] MEDS: LOVENOX SUBQ SCH (21:25)
[2019-02-20] MEDS: NS 1,000 ML IV SCH ×4 (02:17→20:36)
[2019-02-20] MEDS: ZOSYN 4.5 GM in NS 100 ML IV SCH ×4 (04:45→21:59)
[2019-02-20] MEDS: HUMULIN R SUBQ SCH ×4 (06:55→20:41)
[2019-02-20 07:29] LABS: BASO# 0.11 X1000 (0.0-0.2); BASO% 1.3 % (0.0-0.8); EOS% 3.6 % (0.0-10.0); HEMATOCRIT 36.3 % (42.0-52.0); HEMOGLOBIN 12.6 g/dL (14.0-18.0); IMM GRAN# 0.05 X1000 (0.0-0.04); IMM GRAN% 0.6 % (0.0-0.5); LYMPH% 39.6 % (20.5-51.1); MCH 32.7 PG (27-31); MCHC 34.7 g/dL (33-37); MCV 94.3 FL (81-99); MONO# 0.74 X1000 (0.11-0.59); MONO% 8.9 % (1.7-9.3); MPV 9.2 FL (7.4-10.4); NEUT# 3.83 X1000 (1.4-6.5); PLT 449 X1000 (130-400); RBC 3.85 XMIL (4.7-6.1); RDW 14.1 % (11.5-14.5); WBC 8.33 X1000 (4.8-10.8)
[2019-02-20 07:51] LABS: AGAP 11; ALB/GLOB RATIO 1.1; ALBUMIN 3.1 g/dL (3.5-5.0); ALKALINE PHOSPHATASE 385 U/L (32-122); BUN 2 mg/dL (8-22); CALCIUM 8.7 mg/dL (8.8-10.2); CHLORIDE 107 mmol/L (98-107); COSMO 282; CREATININE 0.5 mg/dL (0.7-1.2); ESTIMATED GFR > 60; GLUCOSE 114 mg/dL (70-104); GOT 31 U/L (10-34); POTASSIUM 3.6 mmol/L (3.5-5.1); SODIUM 143 mmol/L (136-145); TCO2 25 mmol/L (25-35); TOTAL BILIRUBIN 0.29 mg/dL (0.20-1.00); TOTAL PROTEIN 5.8 g/dL (6.3-8.3)
[2019-02-20 07:52] LABS: GPT 16 U/L (10-44)
--- NOTE | 2019-02-20 08:33 | PROVIDER PROGRESS NOTE ---
Progress Note SUBJECTIVE: No acute overnight events. Afebrile. Patient denies any abdominal complaints, specifically any N/V, abdominal pain. He has an appetite an would like to go home. He says his abdominal pain resolved when he starting having liquids. OBJECTIVE: Last Vital Signs Temp 98.2 F 02/20/19 08:03 Pulse 68 02/20/19 08:03 Resp 19 02/20/19 08:03 BP 130/81 02/20/19 08:03 Pulse Ox 98 02/20/19 08:03 Height 5 ft 8 in Weight 140 lb 2 oz GEN: awake, alert, NAD HEENT: anicteric, MMM, EOMI NECK: no jvd, supple PULM: CTAB, no wheezing CV: RRR, no murmurs ABD: soft NT/ND, NABS, no rebound or guarding EXT: no cce NEURO: nonfocal LABS: 02/20/19 02/20/19 07:08 07:08 WBC 8.33 Hgb 12.6 L Plt Count 449 H Sodium 143 Potassium 3.6 Chloride 107 Carbon Dioxide 25 BUN 2 L Creatinine 0.5 L Glucose 114 H Total Bilirubin 0.29 AST 31 ALT 16 Alkaline Phosphatase 385 H Total Protein 5.8 L Albumin 3.1 L HIDA SCAN W/O EJECT. FRACTION - 02/16/2019 INDICATION: r/o acute cholecystitis TECHNIQUE: 5.7 mCi of Choletec was administered COMPARISON: CT from 02/14/2019 FINDINGS: There is normal uptake and clearance by the liver. There is normal excretion into the biliary collecting three and small bowel. However even after over 100 minutes, there is no visible gallbladder. IMPRESSION: Acute cholecystitis. This report was discussed with RT Amelia on 02/19/2019 at 8:56 AM and was readback. Electronically signed by [place] 02/19/2019 8:[address] A/P: IMPRESSION: 1. Periportal edema and possible acalculous cholecystitis. Adenopathy in the jonnie hepatis. 2. Phlegmonous change versus spread of carcinoma to the transverse colon on the right between the pancreatic head and the gallbladder. Changes consistent with chronic pancreatitis with multiple calcifications in the pancreas. Retroperitoneal adenopathy. A/P: Mr. 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 There is also adenopathy in the jonnie hepatis and RP; phlegmonous change vs. spread of carcinoma in the transverse colon the right between the pancreatic head and gallbladder; calcifications in the pancreas. Diagnostic colonoscopy was negative for colonic mass. HIDA scan shows absence of gallbladder filling consistent with acute cholecystitis. I suspect this is likely from stent occluding the cystic duct. # Acute cholecystitis: patient has been on zosyn since 02/15 and is clinically s table with benign abdominal exam; surgery following, appreciate recs # Portal and RP LAD: suspect related to acute cholecystitis, cannot rule out malignancy # Chronic pancreatitis: stable # Elevated ALP: likely from known biliary stricture; normal filling of SB on HIDA scan # Anemia: stable Will follow with you. Please call with questions
[2019-02-20] MEDS: PEPCID IV SCH ×4 (08:45→20:38)
[2019-02-20] MEDS: MIRALAX PO SCH ×2 (09:43→20:38)
[2019-02-20] MEDS: NICODERM PATCH TD SCH (09:43)
[2019-02-20] MEDS: THERA M PLUS PO SCH (09:43)
[2019-02-20] MEDS: LEVEMIR SUBQ SCH (09:44)
--- NOTE | 2019-02-20 19:40 | PROGRESS NOTE ---
DATE: 02/20/2019 SUBJECTIVE: This is a patient of iLsbet Tellez who came in with a 4-day history of abdominal pain. He is a 48-year-old with a long-standing history of chronic pancreatitis who underwent stent placement 2 or 3 weeks for worsening abdominal pain. He had received a stent placed per Dr. East. His pain improved. Just 4 days ago, before admission, a similar pain came back radiating to his back, worse with movement. He took some antibiotics and hydrocodone. This managed to take the edge off the pain for the next 24 hours. Unfortunately, the pain returned and escalated. He came to Dr. East's office, but decided to come to the emergency room. No nausea or vomiting. No cardiorespiratory complaints. Pain was worse with movement. He has not had anything to eat for the last few days. Unable to get out because of the pain crippled him, in his words. He says his urine output has declined. He denied any polyuria, polydipsia. So, he is admitted with acute on chronic pancreatitis, probable acalculous cholecystitis, possible pancreatic neoplasm, hypertension, and hyperlipidemia. He states the pain is better. He said that he would like to go home. He would like to be advanced to solid food. He is tolerating liquids. He just does not like them. He is on a full liquid diet. PHYSICAL EXAMINATION: Vital signs: Temperature 98.1, pulse 68, respirations 18, blood pressure 128/77. HEENT: Pupils are equal and round. Lungs: Are clear in all lung palacios. Cardiovascular: Regular rhythm and rate without murmur or S3. Urine output was 2000 mL. Yesterday it was 3000 mL. Blood sugars were 202, 123, 209. ASSESSMENT AND PLAN: 1. It appears he has acute cholecystitis. He has been on Zosyn since 02/15. Surgery following. 2. Cannot rule out malignancy. 3. Chronic pancreatitis, stable. 4. Elevated alkaline phosphatase from known biliary stricture. Normal filling of small bowel on HIDA scan. 5. Anemia, which is stable. 6. I think he was getting a HIDA scan today. He has some retroperitoneal adenopathy periaortic nodes. 7. We will continue to follow the pattern of sugars with sliding scale giving him some laxative for constipation, which he states is better. On a full liquid diet right now. REVIEW OF HIS ORDERS: 1. He is on Lovenox 40 mg subcutaneous q.24 hours. 2. Pepcid 20 mg IV q.12. 3. Insulin detemir 30 units subcutaneous daily. 4. Multivitamin. 5. Nicotine patch 21 mg daily. 6. Normal saline at 150 mL an hour. 7. MiraLAX at 17 g p.o. b.i.d. 8. He is still on his Zosyn 4.5 g q.6h. REVIEW OF TODAY'S LABS: White count 8330, hematocrit is 36, platelet count 449,000. Sodium 143, potassium 3.6, chloride 107, bicarbonate 26, BUN 2, creatinine 0.5. Blood sugars are 202, 232, 114, 309 and 209. cc: Srini Krause MD
[2019-02-20] MEDS: LOVENOX SUBQ SCH (20:38)
[2019-02-20] MEDS: SODIUM CHLORIDE 0.9% INJ SCH (20:43)
--- NOTE | 2019-02-20 21:24 | PROGRESS NOTE ---
DATE: 02/19/2019 SUBJECTIVE: The patient is resting comfortably in bed, no acute events noted overnight. OBJECTIVE: VITAL SIGNS: Temperature 97.9, blood pressure 139/81, heart rate 73, respirations 16, O2 saturation 100% on room air. GENERAL: This is an elderly male sitting in bed in no acute distress. HEART : S1, S2 normal regular rate and rhythm . LUNGS: Clear to auscultation bilaterally. ABDOMEN: Positive bowel sounds, soft, nontender, nondistended. EXTREMITIES: No edema, no cyanosis. NEURO: Patient is alert, oriented x3. LABS: Mag 1.7, phos 4.6. ASSESSMENT AND PLAN: 1. Cholecystitis. Will await further recommendations from general surgery. 2. Chronic pancreatitis. Improved. Gastroenterology is following. 3. Retroperitoneal adenopathy with periaortic nodes. Aware. 4. Tobacco dependence. The patient has been counseled about smoking cessation. 5. Deep vein thrombosis prophylaxis. Continue on Lovenox. cc: Shreya Martínez MD
[2019-02-21] MEDS: NS 1,000 ML IV SCH ×3 (03:49→15:37)
[2019-02-21] MEDS: ZOSYN 4.5 GM in NS 100 ML IV SCH ×2 (03:49→09:50)
[2019-02-21] MEDS: HUMULIN R SUBQ SCH ×2 (06:50→11:14)
[2019-02-21] MEDS: SODIUM CHLORIDE 0.9% INJ SCH (09:50)
[2019-02-21] MEDS: PEPCID IV SCH (09:50)
[2019-02-21] MEDS: MIRALAX PO SCH (09:51)
[2019-02-21] MEDS: LEVEMIR SUBQ SCH (09:51)
[2019-02-21] MEDS: NICODERM PATCH TD SCH (09:51)
[2019-02-21] MEDS: THERA M PLUS PO SCH (09:51)
[2019-02-21 13:52] VITALS: BP 124/82
--- NOTE | 2019-02-21 14:09 | DISCHARGE SUMMARY ---
ADMISSION DATE: 02/14/2019 DISCHARGE DATE: 02/21/2019 HISTORY OF PRESENT ILLNESS: He is followed by Dr. Jojo Sosa. He had a 4 day history of abdominal pain. Presented on 02/14/2019. A 48-year-old with longstanding history of chronic pancreatitis. Underwent stent placement about 3 weeks before this admission. Noted worsening abdominal pain. Said that after receiving his stent placement from Dr. East, his pain improved but 4 days before this admission, started having pain. Described it as stabbing, radiating to his back, worse with movement. Says that he had some antibiotics and hydrocodone, and managed to take the edge off, but the pain just kept escalating so he came to see Dr. East but could not get in by his report. He came to the emergency room. He only had one loose nonbloody stool that day. No nausea or vomiting. No cardiorespiratory complaints. Said his pain was worse with movement. He had not had anything to eat for a couple days. He continues to smoke 3 packs cigarettes a day. Stopped drinking alcohol a few months before this, by his report. ADMISSION DIAGNOSES: 1. Acute on chronic pancreatitis. 2. Probable acalculous cholecystitis. 3. Possible pancreatic neoplasm. 4. Hypertension. 5. Hyperlipidemia. 6. Tobacco use. HOSPITAL COURSE: Admitted. Held NPO. Gastroenterology followed along. The CT showed possible mass involving the transverse colon. He has never had a colonoscopy. He is a heavy smoker. Common bile duct stricture status ERCP recently in January of 2019. He has a history of an infected pseudocyst in the pancreas, status post drainage endoscopically in the past. He was put on antibiotics. He had an elevated alkaline phosphatase secondary to chronic pancreatitis, common bile duct stricture. The CT scan did show that the stent was in place in the common bile duct. The patient showed steady but slow improvement. Surgery was consulted. He had been treated clinically and had no sign of gallstones. Liver function tests were normal and so wanted to pursue conservative treatment. He showed improvement and was able to advance his diet to a regular diet. He was requesting to go home on 02/21/2019 so plan to discharge him home on his Levemir 30 units subcutaneous daily, multivitamin. I gave him a NicoDerm patch. MiraLAX 17 g twice a day as needed. He takes Zyprexa 15 mg at bedtime and can go back on that. Cozaar 25 mg a day, aspirin 325 mg a day, famotidine 40 mg daily. He will go back on his insulin aspartate 10 units subcutaneous as directed. I will give him a prescription for Levemir 30 units daily. He is to follow up with his primary care, follow up with Dr. East. cc: Srini Krause MD
--- NOTE | 2019-02-22 00:30 | PROVIDER PROGRESS NOTE ---
Progress Note SUBJECTIVE: No acute overnight events. He denies any complaints. Tolerating diet. OBJECTIVE: Last Vital Signs Temp 98.0 F 02/21/19 13:51 Pulse 73 02/21/19 13:51 Resp 20 02/21/19 13:51 BP 124/82 02/21/19 13:51 Pulse Ox 100 02/21/19 13:51 Height 5 ft 8 in Weight 140 lb 2 oz GEN: awake, alert, NAD HEENT: anicteric, MMM, EOMI NECK: no jvd, supple PULM: CTAB, no wheezing CV: RRR, no murmurs ABD: soft NT/ND, NABS, no rebound or guarding EXT: no cce NEURO: nonfocal LABS: no labs A/P: Mr. 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 There is also adenopathy in the jonnie hepatis and RP; phlegmonous change vs. spread of carcinoma in the transverse colon the right between the pancreatic head and gallbladder; calcifications in the pancreas. Diagnostic colonoscopy was negative for colonic mass. HIDA scan shows absence of gallbladder filling consistent with acute cholecystitis. I suspect this is likely from stent occluding the cystic duct. Seen by surgery who felt that patient was not a good surgical candidate given metal CBD stent and would like to defer surgical intervention given clinical improvement. # Acute cholecystitis: patient had been on zosyn since 02/15 and is clinically stable with benign abdominal exam; surgery following, appreciate recs # Portal and RP LAD: suspect related to acute cholecystitis, cannot rule out malignancy # Chronic pancreatitis: stable # Elevated ALP: likely from known biliary stricture; normal filling of SB on HIDA scan # Anemia: stable Patient discharged today. He should follow-up with Dr. East
== END 2019-02-21 17:08 | disposition home or self-care (01) | DRG 444 ==
LOC: ED 14:24 → SUATTDRO 22:05 → 3N 22:05
PROVIDERS: ATTEND Emergency Medicine
CPT/HCPCS: 74176; 78226; 80053; 81001; 82150; 82378; 82948; 83690; 83735; 84100; 84132; 85025; 85027; 86301; 88305; A9270; A9537; J0131; J1170; J1650; J2270; J2405; J2543; J3010; J3475; J3480; J7030; J7040; J7120; S0028; XXXXX